=== PATIENT | male | born 1940 | race Caucasian/White ===

== ENCOUNTER 2022-06-18 17:00 | Outpatient (CLI) | payer SELFPAY | END 2022-06-18 17:01 | disposition critical access hospital (66) | LOC: EMS 17:00 | DX: R53.1 Weakness (principal); I49.9 Cardiac arrhythmia, unspecified | CPT/HCPCS: A0425; A0429 ==

== ENCOUNTER 2022-06-18 17:02 | Emergency (ER) | payer SELFPAY ==
[2022-06-18] MEDS ORDERED: SODIUM CHLORIDE 0.9% 1,000 ML IV STA (18:15)
--- NOTE | 2022-06-18 18:15 | ED Physician Documentation ---
History of Present Illness - Stated complaint Stated Complaint: GLF - Chief complaint Chief Complaint: Cardiac - History obtained from History obtained from: Patient, EMS - History of Present Illness Pain level max: 0 Pain level now: 0 - Additonal information Additional information: Patient is an 82-year-old male who presents to the emergency department stating that he lives at home by himself. He states that last night around 830 he felt weak on the left leg and left arm, described as mild. He states that he tried to get up to go to the bathroom but fell onto the ground. He then "slathered" his way to the bathroom and use the bathroom. He then went to bed. This morning he got up out of his recliner and felt like the left foot was mildly weak. He states that he fell again and this time he called his neighbor who called EMS. Patient has not had similar symptoms previously. He does not take any medications at home. Denies any injuries. No head, neck, back pain. States he currently feels normal. Review of Systems Constitutional: denies: Fever, Chills GI: denies: Vomiting, Diarrhea Skin: denies: Rash Musculoskeletal: denies: Neck pain, Back pain PD PAST MEDICAL HISTORY - Past Medical History Past Medical History: No - Past Surgical History Past Surgical History: No - Present Medications Home Medications: Ambulatory Orders Medication Instructions Recorded Confirmed No Known Home Medications 06/18/22 06/18/22 - Allergies Allergies/Adverse Reactions: Allergies Allergy/AdvReac Type Severity Reaction Status Date / Time No Known Drug Allergies Allergy Verified 06/18/22 17:22 - Living Situation Living Arrangement: reports: At home - Social History Does the pt smoke?: No Does the pt drink ETOH?: No Does the pt have substance abuse?: No - Family History Family history: reports: Non contributory PD ED PE NORMAL - Vitals Vital signs reviewed: Yes - General General: Alert and oriented X 3, No acute distress - HEENT HEENT: Atraumatic, PERRL, EOMI, Ears normal, Pharynx benign, Other (Dry lips and tongue) - Neck Neck: Supple, no meningeal sign, No bony TTP - Cardiac Cardiac: RRR, Strong equal pulses - Respiratory Respiratory: No respiratory distress, Clear bilaterally - Abdomen Abdomen: Soft, Non tender, Non distended - Back Back: No spinal TTP - Derm Derm: Warm and dry - Extremities Extremities: No edema, No calf tenderness / cord - Neuro Neuro: Alert and oriented X 3, real property evaluator 2-12 intact, No motor deficit, No sensory deficit, Normal speech Eye Opening: Spontaneous Motor: Obeys Commands Verbal: Oriented GCS Score: 15 - Psych Psych: Normal mood, Normal affect Results - Vitals Vitals: Vital Signs - 24 hr 06/18/22 06/18/22 06/18/22 17:14 17:26 17:56 Temperature 37.1 C Heart Rate 95 89 94 Respiratory 18 18 18 Rate Blood Pressure 156/95 H 142/80 H O2 Saturation 98 100 100 06/18/22 06/18/22 06/18/22 18:33 19:06 19:30 Temperature Heart Rate 84 85 81 Respiratory 18 18 20 Rate Blood Pressure 148/81 H 136/90 H 134/81 H O2 Saturation 99 99 100 06/18/22 06/18/22 06/18/22 20:00 20:30 21:00 Temperature Heart Rate 78 82 84 Respiratory 21 14 11 L Rate Blood Pressure 134/94 H 113/94 H O2 Saturation 100 100 99 06/18/22 06/18/22 06/18/22 21:30 22:00 22:30 Temperature Heart Rate 94 92 94 Respiratory 18 16 19 Rate Blood Pressure 146/87 H 118/77 117/90 H O2 Saturation 92 96 97 06/18/22 06/18/22 23:00 23:45 Temperature 36.9 C Heart Rate 87 88 Respiratory 17 17 Rate Blood Pressure 121/88 H 121/88 H O2 Saturation 99 97 Oxygen O2 Source Room air - EKG (time done) 1851 Rate: Rate (enter#) (86) Rhythm: NSR, Other (PVC) [place]: LAD Intervals: Wide QRS Ischemia: Normal ST segments, Non specific changes (ST elevation V1-2) - Labs Labs: Laboratory Tests 06/18/22 06/18/22 06/18/22 18:20 18:20 18:20 WBC 11.8 H RBC 4.89 Hgb 14.5 Hct 44.9 MCV 91.8 MCH 29.7 MCHC 32.3 RDW 12.9 Plt Count 317 MPV 11.1 Neut # (Auto) 9.7 H Lymph # (Auto) 1.2 L Dunn # (Auto) 0.8 Eos # (Auto) 0.0 Baso # (Auto) 0.0 Absolute Nucleated RBC 0.00 Nucleated RBC % 0.0 PT INR APTT Sodium 137 Potassium 3.5 Chloride 95 L Carbon Dioxide 25 Anion Gap 17.0 H BUN 30 H Creatinine 0.9 Estimated GFR (MDRD) 81 L Glucose 102 H Calcium 10.1 Phosphorus 2.8 Magnesium 2.0 Total Bilirubin 1.0 AST 41 ALT 14 Alkaline Phosphatase 56 Total Creatine Kinase 603 H Troponin I High Sens 81.2 H* Total Protein 8.1 Albumin 3.8 Globulin 4.3 H Albumin/Globulin Ratio 0.9 L Lipase 27 Urine Color Urine Clarity Urine pH Ur Specific [place] Urine Protein Urine Glucose (UA) Urine Ketones Urine Occult Blood Urine Nitrite Urine Bilirubin Urine Urobilinogen Ur Leukocyte Esterase Ur Microscopic Review Urine Culture Comments 06/18/22 06/18/22 06/18/22 18:40 18:42 22:42 WBC RBC Hgb Hct MCV MCH MCHC RDW Plt Count MPV Neut # (Auto) Lymph # (Auto) Dunn # (Auto) Eos # (Auto) Baso # (Auto) Absolute Nucleated RBC Nucleated RBC % PT 11.9 INR 1.1 APTT 26.6 Sodium Potassium Chloride Carbon Dioxide Anion Gap BUN Creatinine Estimated GFR (MDRD) Glucose Calcium Phosphorus Magnesium Total Bilirubin AST ALT Alkaline Phosphatase Total Creatine Kinase Troponin I High Sens 90.2 H* Total Protein Albumin Globulin Albumin/Globulin Ratio Lipase Urine Color YELLOW Urine Clarity CLEAR Urine pH 6.0 Ur Specific [place] 1.020 Urine Protein TRACE Urine Glucose (UA) NEGATIVE Urine Ketones 40 H Urine Occult Blood NEGATIVE Urine Nitrite NEGATIVE Urine Bilirubin NEGATIVE Urine Urobilinogen 1 (NORMAL) Ur Leukocyte Esterase NEGATIVE Ur Microscopic Review NOT INDICATED Urine Culture Comments NOT INDICATED - Rads (name of study) CT angiogram head Radiology: Final report received, See rad report CT angiogram neck Radiology: Final report received, See rad report Chest x-ray Radiology: Final report received, See rad report PD Medical Decision Making - ED course Complexity details: reviewed results, re-evaluated patient, considered diff erential, d/w patient ED course: Patient appears significantly dehydrated. He feels much better after IV fluids. The CT angiogram of head and neck do not show any acute abnormalities. 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 He will follow-up with his doctor for this. He is eating and drinking without difficulty. Ambulating without any difficulty. No focal neurological deficits. NIH stroke scale of 0. Unclear etiology of his symptoms earlier today. We will have him follow-up with his doctor for further care. Patient counseled regarding signs and symptoms for which I believe and urgent re-evaluation would be necessary. Patient with good understanding of and agreement to plan and is comfortable going home at this time This document was made in part using voice recognition software. While efforts are made to proofread this document, sound alike and grammatical errors may occur. Patient does have a mild elevation of his high-sensitivity troponin. This did not change on repeat testing, suspect that this is a chronically elevated level. Patient does not have any chest pain, shortness of breath or symptoms of acute coronary syndrome currently. Departure - Departure Disposition: 01 Home, Self Care Clinical Impression: Ground-level fall, Dehydration Condition: Good Instructions: ED Dehydration Follow-Up: your,doctor in 1 week [Other] Comments: Please make sure you are drinking plenty of fluids at home. Please follow-up with your doctor for further care. Return if you worsen. It is recommended th at you follow-up with your doctor for further testing including cardiac screening, cholesterol screening. You do have an aortic aneurysm as well, but this does not meet criteria for surgery at this time and should be followed closely by your doctor. Please return if you worsen. HEAD CT ANGIOGRAPHY: Anterior circulation: Intracranial internal carotid arteries are normal in size and appear patent bilaterally. There is mild atherosclerotic calcification along the cavernous segments of the internal carotid arteries. The paired anterior cerebral arteries appear patent bilaterally. The anterior communicating artery also appears patent. The middle cerebral arteries appear patent bilaterally. No high-grade stenosis, occlusion, or filling defects. No cerebral aneurysms identified. Posterior circulation: Visualized portions of the vertebral arteries demonstrate normal caliber, and join to form a patent basilar artery. The posterior cerebral arteries appears patent bilaterally. No high-grade stenosis, occlusion, or filling defects. No cerebral aneurysms identified. IMPRESSION: 1. No acute intracranial abnormality. 2. No high-grade stenosis or occlusion of the central intracranial arteries. 3. Mild chronic white matter small vessel ischemic changes and cerebral volume loss. 4. Focal small hypodensi NECK CT ANGIOGRAPHY: Carotid system: There is aneurysmal dilatation of the visualized thoracic aorta, with the visualized arch measuring up to 4.5 cm. The great vessels demonstrate a conventional anatomy as they arise from the aortic arch. The origins of the common carotid arteries appear patent. The common carotid arteries are patent bilaterally. There is scattered atherosclerotic plaque with mild narrowing of less than 50% in the carotid bulbs. There is tortuosity of the left internal carotid artery. Internal carotid arteries appear patent along their course bilaterally. The carotid arteries as well as the proximal anterior and middle cerebral arteries are prominent in caliber. Posterior circulation: The origins of the vertebral arteries both appear patent. The more superior extracranial portions of both vertebral arteries also appear widely patent. They join to form a patent basilar artery. The vertebral arteries and the basilar artery are prominent in caliber. Soft tissues: Visualized thorax demonstrates scarring within the lung apices. Bones: No suspicious bony lesions. Visualized cervical spine demonstrates straightening of the cervical lordosis. There is multilevel degenerative disc disease and facet joint arthropathy. IMPRESSION: 1. No high-grade stenosis or occlusion of the head and neck arteries. 2. Mild narrowing of less than 50% in the carotid bulbs. 3. Aneurysmal dilatation of the visualized aorta. The estimate of stenosis included in the report of the imaging study was calculated using the NASCET method FINDINGS: Surgical changes and devices: None. Lungs and pleura: There is hyperinflation of the lungs with flattening of the hemidiaphragms compatible with COPD. No acute consolidation. No pleural effusions or pneumothorax. Mediastinum: There is aneurysmal dilatation of the aortic arch. Heart size is normal. Bones and chest wall: No suspicious bony lesions. Overlying soft tissues appear unremarkable. IMPRESSION: 1. No acute airspace disease. 2. Aneurysmal dilatation of the aortic arch. NIHSS - Time Time: 18:35 - Level of Consciousness Level of consciousness: (0) Alert, Keenly responsive LOC Questions: (0) Answers both Q's correct LOC Commands: (0) Performs both correctly - Gaze Best Gaze: (0) Normal - Visual Visual: (0) No loss - Facial Palsy Facial Palsy: (0) Normal, symmetrical movement - Motor Arms (both separate) Motor Arm (right): (0) No drift Motor Arm (left): (0) No drift - Motor Legs (both separate) Motor Leg (right): (0) No drift Motor Leg (left): (0) No drift - Limb Ataxia Limb Ataxia: (0) Absent - Sensory Sensory: (0) Normal - Best Language Best Language: (0) No aphasia - Dysarthria Dysarthria: (0) Normal - Extinction and Inattention (formally neg Extinction and inattention: (0) No abnormality - Total Score/Results Total Score/Result: 0
[2022-06-18 18:36] LABS: BASOPHILS % (AUTO) 0.3 %; EOSINOPHILS % (AUTO) 0.2 %; HCT - HEMATOCRIT 44.9 % (42.0-52.0); HGB - HEMOGLOBIN 14.5 g/dL (14.0-18.0); LYMPHOCYTES # (AUTO) 1.2 10^3/uL (1.5-3.5); LYMPHOCYTES % (AUTO) 10.4 %; MEAN CORPUSCULAR HEMOGLOBIN 29.7 pg (27.0-31.0); MEAN CORPUSCULAR HGB CONC 32.3 g/dL (32.0-36.0); MEAN CORPUSCULAR VOLUME 91.8 fL (80.0-94.0); MEAN PLATELET VOLUME 11.1 fL (7.4-11.4); MONOCYTES # (AUTO) 0.8 10^3/uL (0.0-1.0); MONOCYTES % (AUTO) 6.7 %; NEUTROPHILS # (AUTO) 9.7 10^3/uL (1.5-6.6); NEUTROPHILS % (AUTO) 81.9 %; PLT - PLATELET COUNT 317 10^3/uL (130-450); RED BLOOD COUNT 4.89 10^6/uL (4.70-6.10); RED CELL DISTRIBUTION WIDTH 12.9 % (12.0-15.0); WHITE BLOOD COUNT 11.8 x10^3/uL (4.8-10.8)
[2022-06-18 18:51] LABS: ALBUMIN 3.8 g/dL (3.2-5.5); ALBUMIN/GLOBULIN RATIO 0.9 (1.0-2.2); CALCIUM 10.1 mg/dL (8.5-10.3); CREATININE 0.9 mg/dL (0.6-1.2); PHOSPHORUS 2.8 mg/dL (2.5-4.6); POTASSIUM 3.5 mmol/L (3.5-5.0); TOTAL PROTEIN 8.1 g/dL (6.7-8.2)
[2022-06-18 18:57] LABS: INR 1.1 (0.8-1.2); PT - PROTHROMBIN TIME 11.9 secs (9.9-12.6)
[2022-06-18 18:58] LABS: BILIRUBIN,URINE NEGATIVE (NEGATIVE); GLUCOSE, URINE (UA) NEGATIVE (NEGATIVE); KETONES,URINE (UA) 40 mg/dL (NEGATIVE); LEUKOCYTE ESTERASE, URINE NEGATIVE (NEGATIVE); NITRITE,URINE NEGATIVE (NEGATIVE); OCCULT BLOOD,URINE NEGATIVE (NEGATIVE); PROTEIN,URINE TRACE mg/dL (NEGATIVE); UROBILINOGEN,URINE 1 (NORMAL) E.U./dL (NORMAL)
[2022-06-18 18:59] LABS: CLARITY,URINE CLEAR (CLEAR)
[2022-06-18 19:04] LABS: PARTIAL THROMBOPLASTIN TIME 26.6 secs (24.9-33.3)
--- NOTE | 2022-06-18 20:31 | CT Report ---
PROCEDURE: ANGIO HEAD W/WO INDICATIONS: L sided weakness CONTRAST: 80mL Omni 300 TECHNIQUE: Precontrast 4.5 mm thick angled axial sections acquired from the foramen magnum to the vertex. Afte r the administration of intravenous contrast, 1 mm thick sections acquired through the [place] of [place] is. Postcontrast 4.5 mm thick sections then re-acquired from the foramen magnum to the vertex. 3-di mensional whqreiy-fqiyxwcjc-scflqrkigi (MIP) and/or volume rendering reformats were acquired of the c entral intracranial vasculature. For radiation dose reduction, the following was used: automated ex posure control, adjustment of mA and/or kV according to patient size. COMPARISON: Concurrent CTA of the neck FINDINGS: Image quality: There is mild motion artifact. BRAIN: CSF spaces: There is mild cerebral volume loss with prominence of the ventricles and sulci. Basal ci sterns are patent. No extra-axial fluid collections. Brain: No intracranial hemorrhage, mass, or mass effect. Mejia-white matter interface is preserved. T here are subcortical and periventricular white matter hypodensities consistent with mild chronic smal l vessel ischemic changes. A small focal hypodensity within the left thalamus is suggestive of a prio r lacunar infarct of indeterminate acuity. No abnormal intracranial enhancement. Skull and face: Calvarium and facial bones appear intact, without suspicious lesions. Orbits appear normal. Sinuses: Sinuses and mastoids are clear. HEAD CT ANGIOGRAPHY: Anterior circulation: Intracranial internal carotid arteries are normal in size and appear patent bi laterally. There is mild atherosclerotic calcification along the cavernous segments of the internal carotid arteries. The paired anterior cerebral arteries appear patent bilaterally. The anterior com municating artery also appears patent. The middle cerebral arteries appear patent bilaterally. No hi gh-grade stenosis, occlusion, or filling defects. No cerebral aneurysms identified. Posterior circulation: Visualized portions of the vertebral arteries demonstrate normal caliber, and join to form a patent basilar artery. The posterior cerebral arteries appears patent bilaterally. No high-grade stenosis, occlusion, or filling defects. No cerebral aneurysms identified. IMPRESSION: 1. No acute intracranial abnormality. 2. No high-grade stenosis or occlusion of the central intracranial arteries. 3. Mild chronic white matter small vessel ischemic changes and cerebral volume loss. 4. Focal small hypodensity in the left thalamus suggestive of a prior lacunar infarct of indeterminat e acuity. Reviewed by: Greg Lane MD on 06/18/2022 8:29 PM PST Approved by: Greg Lane MD on 06/18/2022 8:29 PM PST Station ID: [id number]
--- NOTE | 2022-06-18 20:37 | CT Report ---
PROCEDURE: ANGIO NECK W INDICATIONS: L sided weakness CONTRAST: 80mL Omni 300 TECHNIQUE: After the administration of intravenous contrast, 1.5 mm axial sections acquired from the aortic arch to the [place] of [place]. Coronal 3-D maximum intensity projection (MIP) and/or volume rendering ref ormats were then performed. For radiation dose reduction, the following was used: automated exposur e control, adjustment of mA and/or kV according to patient size. COMPARISON: Concurrent CTA head. FINDINGS: Image quality: Excellent. NECK CT ANGIOGRAPHY: Carotid system: There is aneurysmal dilatation of the visualized thoracic aorta, with the visualized arch measuring up to 4.5 cm. The great vessels demonstrate a conventional anatomy as they arise from the aortic arch. The origins of the common carotid arteries appear patent. The common carotid jimena karla are patent bilaterally. There is scattered atherosclerotic plaque with mild narrowing of less th an 50% in the carotid bulbs. There is tortuosity of the left internal carotid artery. Internal caroti d arteries appear patent along their course bilaterally. The carotid arteries as well as the proximal anterior and middle cerebral arteries are prominent in caliber. Posterior circulation: The origins of the vertebral arteries both appear patent. The more superior extracranial portions of both vertebral arteries also appear widely patent. They join to form a madsen nt basilar artery. The vertebral arteries and the basilar artery are prominent in caliber. Soft tissues: Visualized thorax demonstrates scarring within the lung apices. Bones: No suspicious bony lesions. Visualized cervical spine demonstrates straightening of the cerv ical lordosis. There is multilevel degenerative disc disease and facet joint arthropathy. IMPRESSION: 1. No high-grade stenosis or occlusion of the head and neck arteries. 2. Mild narrowing of less than 50% in the carotid bulbs. 3. Aneurysmal dilatation of the visualized aorta. The estimate of stenosis included in the report of the imaging study was calculated using the NASCET method Reviewed by: Greg Lane MD on 06/18/2022 8:36 PM PST Approved by: Greg Lane MD on 06/18/2022 8:36 PM PST Station ID: [id number]
[2022-06-18] MEDS ORDERED: iohexoL-300 100 ML VIAL IVP ONE (21:14)
--- NOTE | 2022-06-18 21:24 | XRAY Report ---
PROCEDURE: Chest 1 View X-Ray INDICATIONS: abnormal EKG TECHNIQUE: One view of the chest was acquired. COMPARISON: None. FINDINGS: Surgical changes and devices: None. Lungs and pleura: There is hyperinflation of the lungs with flattening of the hemidiaphragms compati ble with COPD. No acute consolidation. No pleural effusions or pneumothorax. Mediastinum: There is aneurysmal dilatation of the aortic arch. Heart size is normal. Bones and chest wall: No suspicious bony lesions. Overlying soft tissues appear unremarkable. IMPRESSION: 1. No acute airspace disease. 2. Aneurysmal dilatation of the aortic arch. Reviewed by: Greg Donovan MD on 06/18/2022 9:22 PM [facility] Approved by: Greg Donovan MD on 06/18/2022 9:22 PM [facility] Station ID: [id number]
[2022-06-18 23:05] VITALS: BP 121/88
== END 2022-06-18 23:45 | disposition home or self-care (01) ==
LOC: ED 17:02
DX: E86.0 Dehydration (principal); W18.30XA Fall on same level, unspecified, initial encounter; Z91.81 History of falling
CPT/HCPCS: 36415; 70496; 70498; 71045; 80053; 81003; 82550; 83690; 83735; 84100; 84484; 85025; 85610; 85730; 93005; 99284; Q9967; 81001; 87086

== ENCOUNTER 2025-03-28 14:02 | Inpatient (IN) ==
--- NOTE | 2025-03-28 14:18 | ED Physician Documentation ---
History of Present Illness Stated complaint Stated Complaint: FALL/AMS Chief complaint Chief Complaint: Back Pain History obtained from History obtained from: Patient and EMS Additonal information Additional information: The patient is brought to the emergency department by EMS for chief complaint of found down on the floor. The patient does not remember falling or being on the floor at his house, but apparently, friends or family had not heard from him and stepped in to check on him and thought that he had probably been on the floor since at least 1700 yesterday. The patient denies any complaints other than being a little bit weak. He states that he takes natural remedies and does not use any medications and that his "organs are in great shape". He denies chest pain or shortness of breath. No fevers. No other complaints at this time. Meds/Allgy Home Medications Ambulatory Orders Medication Instructions Recorded Confirmed No Known Home Medications 06/18/2203/10 Allergies Allergies Allergy/AdvReac Type Severity Reaction Status Date / Time No Known Drug Allergies Allergy Verified 03/28/25 14:54 PFSH Active Problems All Active Problems (Updated 03/28/25 @ 17:[address] MD) Dehydration (Acute) Generalized weakness (Acute) Atrial flutter with rapid ventricular response (Acute) Social History Social History (Updated 03/29/25 @ 07:50 by Keya Elena MD) Smoking Status: Never smoker Living arrangement: At home Level: Assisted Home Mobility Equipment: Wheelchair Do you feel safe in your home environment?: Yes History of physical, verbal, emotional, or financial abuse?: No Exam Exam Vital Signs: Vital Signs x48h Temp Pulse Resp BP Pulse Ox 03/28/25 14:06 36.6 C 144 H 18 133/111 H 100 Constitutional normal general appearance and no apparent distress HENMT normocephalic, head/scalp atraumatic, external nose normal and oral mucous membranes normal Eyes EOMs intact bilaterally Neck/C-Spine visual inspection normal and supple Respiratory breath sounds equal bilaterally, normal respiratory effort and clear to auscultation bilaterally Cardiovascular regular rhythm noted and no edema Regular rhythm with tachycardic rate. Gastrointestinal abdomen normal to inspection, abdomen soft to palpation, nontender to palpation and nondistended Genitourinary no CVA tenderness Extremities normal to inspection Neurology Alert, grossly intact Psychiatry mental status grossly normal Skin skin color normal Results Vitals Vitals: Vital Signs - 24 hr 03/29/25 09:00 03/29/25 10:00 03/29/25 11:00 Pulse Rate Pulse Rate [Monitoring electrodes] 78 76 115 H Respiratory Rate 25 H 24 16 Blood Pressure Blood Pressure [Right Brachial artery] 104/74 104/79 121/86 O2 Saturation 97 96 98 O2 Source Room air Room air Room air Sedation scale 0-Fully awake 0-Fully awake 03/29/25 11:01 03/29/25 11:14 Pulse Rate 109 H 115 H Pulse Rate [Monitoring electrodes] Respiratory Rate Blood Pressure 121/86 121/86 Blood Pressure [Right Brachial artery] O2 Saturation O2 Source Sedation scale Oxygen O2 Source Room air Labs Labs: Laboratory Tests 03/28/25 03/28/25 03/28/25 14:05 14:19 14:35 WBC 9.7 RBC 4.30 L Hgb 12.8 L Hct 39.1 L MCV 90.9 MCH 29.8 MCHC 32.7 RDW 14.0 Plt Count 276 MPV 11.4 Neut # (Auto) 8.6 H Lymph # (Auto) 0.4 L Wheeler # (Auto) 0.6 Eos # (Auto) 0.0 Baso # (Auto) 0.0 Absolute Nucleated RBC 0.00 Nucleated RBC % 0.0 Sodium 141 Potassium 3.8 Chloride 103 Carbon Dioxide 25 Anion Gap 13.0 BUN 28 H Creatinine 0.8 Estimated GFR (MDRD) 92 Glucose 116 H POC Whole Bld Glucose 144 Calcium 8.9 Magnesium Total Bilirubin 0.9 AST 20 ALT 8 L Alkaline Phosphatase 49 Total Creatine Kinase 367 H Total Protein 6.7 Albumin 3.7 Globulin 3.0 Albumin/Globulin Ratio 1.2 Lipase 10 L Urine Color Urine Clarity Urine pH Ur Specific [place] Urine Protein Urine Glucose (UA) Urine Ketones Urine Occult Blood Urine Nitrite Urine Bilirubin Urine Urobilinogen Ur Leukocyte Esterase Urine RBC Urine WBC Ur Squamous Epith Cells Urine Bacteria Urine Mucus Ur Microscopic Review Urine Culture Comments Nasal Screen MRSA (PCR) 03/28/25 03/28/25 03/29/25 16:13 18:03 04:30 WBC 8.7 RBC 4.21 L Hgb 12.8 L Hct 38.5 L MCV 91.4 MCH 30.4 MCHC 33.2 RDW 14.3 Plt Count 262 MPV 11.1 Neut # (Auto) Lymph # (Auto) Wheeler # (Auto) Eos # (Auto) Baso # (Auto) Absolute Nucleated RBC Nucleated RBC % Sodium 140 Potassium 3.3 L Chloride 106 Carbon Dioxide 25 Anion Gap 9.0 BUN 25 H Creatinine 0.8 Estimated GFR (MDRD) 92 Glucose 110 H POC Whole Bld Glucose Calcium 8.5 Magnesium 1.9 Total Bilirubin AST ALT Alkaline Phosphatase Total Creatine Kinase Total Protein Albumin Globulin Albumin/Globulin Ratio Lipase Urine Color YELLOW Urine Clarity CLEAR Urine pH 6.0 Ur Specific [place] 1.030 Urine Protein NEGATIVE Urine Glucose (UA) NEGATIVE Urine Ketones NEGATIVE Urine Occult Blood TRACE Urine Nitrite NEGATIVE Urine Bilirubin SMALL H Urine Urobilinogen 0.2 (NORMAL) Ur Leukocyte Esterase NEGATIVE Urine RBC None Seen Urine WBC 0-3 Ur Squamous Epith Cells FEW Squamous Urine Bacteria Rare Urine Mucus Few Strands Ur Microscopic Review INDICATED Urine Culture Comments NOT INDICATED Nasal Screen MRSA (PCR) NEGATIVE PD Medical Decision Making ED course Complexity details: reviewed old records, reviewed results, considered differential and d/w patient ED course: The pt was significantly tachycardic on arrival, and EKG showed a regular rhythm in the 140's, read as "SVT." Pt was given adenosine 6 mg, and rate slowed briefly to the 90's, demonstrating atrial flutter on the monitor. The rate promptly went back up to the 140's, so pt was given Cardizem 25 mg IV and a PO dose, as well. His rate came down to the 90's for a while, but within an hour, it was creeping back up to the 130's. The pt was given another dose of IV Cardizem 25 mg, and started on a Cardizem drip. He was hydrated with IV fluids during this time. Labs showed a moderately elevated CK in the 300's, a normal WBC count, and elevated BUN at 28 with normal creatinine. The pt urinated after receiving a couple liters of NS, and this was negative. I discussed the case with the hospitalist team, and they agreed to admit the pt to the ICU on diltiazem drip. HR was improved in the low 100's on re-evaluation after drip initiation. Critical Care Critical Care Provided: Yes Time(min): 30 Comments: Critical care time was necessary, due to high probability of imminent and life- threatening decline, due to tachyarrhythmia in the setting of atrial flutter. Time Includes: Direct patient care, Review records, Reassess patient, Document care, Coordinate care and Medical consult Data interpretation: Labs, Pulse ox, CXR, Prior EKG, Cardiac output and See progress note Discharge Plan Discharge Patient Disposition: [facility] DC/Xfer Condition: Critical Clinical Impression: Atrial flutter with rapid ventricular response, Generalized weakness, Dehydration Interventions: ED Admission Assessment Last Done: 03/28/25 18:06 Vitals documented within 30 minutes of discharge?: Yes
[2025-03-28 14:24] LABS: HCT - HEMATOCRIT 39.1 % (42.0-52.0); HGB - HEMOGLOBIN 12.8 g/dL (14.0-18.0); MEAN PLATELET VOLUME 11.4 fL (7.4-11.4); NRBC ABSOLUTE COUNT (AUTO) 0.00 x10^3/uL; NUCLEATED RED BLOOD CELLS AUTO 0.0 /100WBC; PLT - PLATELET COUNT 276 10^3/uL (130-450); RED CELL DISTRIBUTION WIDTH 14.0 % (12.0-15.0)
[2025-03-28] MEDS: ADENOSINE 6 MG/2 ML VIAL IVP STA (14:24)
[2025-03-28] MEDS: SODIUM CHLORIDE 0.9% 1,000 ML IV STA ×2 (14:25→16:05)
[2025-03-28] MEDS: diltiaZEM INJ 5 MG/ML VIAL IVP STA ×2 (14:47→16:52)
[2025-03-28 14:55] LABS: ALT ALANINE AMINOTRANSFERASE 8.0 IU/L (10-60); AST ASPARTATE AMINOTRANSFERASE 20.0 IU/L (10-42); BUN - BLOOD UREA NITROGEN 28.0 mg/dL (6-20); CARBON DIOXIDE - CO2 25.0 mmol/L (21-32); CK- CREATINE KINASE 367.0 IU/L (30-223); CREATININE 0.8 mg/dL (0.6-1.3); GFR - MDRD 92.0 (>89)
--- OUTSIDE RECORDS SUMMARY | 2025-03-28 15:14 | EXTERNAL MEDICAL SUMMARY RPT | Continuity of Care Document ---
Author Organization [facility] Address [address] [place] [address] Phone Results/Labs test date facility value unit notes Result panel 1 GLUCOSE, WHOLE BLOOD 2025-03-28 14:05 [facility] 144 (missing) (missing) Result panel 2 NUCLEATED RED BLOOD CELLS AUTO 2025-03-28 14:19 [facility] 0.0 /100wbc (missing) BASOPHILS # (AUTO) 2025-03-28 14:19 [facility] 0.0 10 3/ul (missing) EOSINOPHILS # (AUTO) 2025-03-28 14:19 [facility] 0.0 10 3/ul (missing) NRBC ABSOLUTE COUNT (AUTO) 2025-03-28 14:19 [facility] 0 .00 x10 3/ul (missing) LYMPHOCYTES # (AUTO) 2025-03-28 14:19 [facility] 0.4 10 3/ul (missing) MONOCYTES # (AUTO) 2025-03-28 14:19 [facility] 0.6 10 3/ul (missing) MEAN PLATELET VOLUME 2025-03-28 14:19 [facility] 11.4 fl (missing) HGB - HEMOGLOBIN 2025-03-28 14:19 [facility] 12.8 g /dl (missing) RED CELL DISTRIBUTION WIDTH 2025-03-28 14:19 [facility] 14.0 % (missing) PLT - PLATELET COUNT 2025-03-28 14:19 [facility] 276 10 3/ul (missing) MEAN CORPUSCULAR HEMOGLOBIN 2025-03-28 14:19 [facility] 29.8 pg (missing) MEAN CORPUSCULAR HGB CONC 2025-03-28 14:19 [facility] 32 .7 g/dl (missing) HCT - HEMATOCRIT 2025-03-28 14:19 [facility] 39.1 % (missing) RED BLOOD COUNT 2025-03-28 14:19 [email or web address] 4.30 10 6/ul (missing) NEUTROPHILS # (AUTO) 2025-03-28 14:19 [email or web address] 8.6 10 3/ul (missing) WHITE BLOOD COUNT 2025-03-28 14:19 [email or web address] 9.7 x10 3/ul (missing) MEAN CORPUSCULAR VOLUME 2025-03-28 14:19 [email or web address] 90.9 fl (missing) Result panel 3 CREATININE 2025-03-28 14:35 [email or web address] 0.8 mg/dl As of November 2022 testing method has changed, this may include reference ranges. BILIRUBIN,TOTAL 2025-03-28 14:35 [email or web address] 0.9 mg/dl As of November 2022 testing method has changed, this may include reference ranges. ALBUMIN/GLOBULIN RATIO 2025-03-28 14:35 [email or web address] 1.2 (missing) (missing) LIPASE 2025-03-28 14:35 [email or web address] 10 u/l As of November 2022 testing method has changed, this may include reference ranges. CHLORIDE 2025-03-28 14:35 [email or web address] 103 mmol/l As of November 2022 testing method has changed, this may include reference ranges. GLUCOSE 2025-03-28 14:35 [email or web address] 116 mg/dl As of November 2022 testing method has changed, this may include reference ranges. ANION GAP 2025-03-28 14:35 [email or web address] 13.0 (missing) (missing) SODIUM 2025-03-28 14:35 [email or web address] 141 mmol/l REDRAW AST ASPARTATE AMINOTRANSFERASE 2025-03-28 14:35 [email or web address] 20 iu/l As of November 2022 testing method has changed, this may include reference ranges. CARBON DIOXIDE - CO2 2025-03-28 14:35 [email or web address] 25 mmol/l As of November 2022 testing method has changed, this may include reference ranges. BUN - BLOOD UREA NITROGEN 2025-03-28 14:35 [email or web address] 28 mg/dl As of November 2022 testing method has changed, this may include reference ranges. GLOBULIN 2025-03-28 14:35 [email or web address] 3.0 g/dl (missing) ALBUMIN 2025-03-28 14:35 [email or web address] 3.7 g/dl As of November 2022 testing method has changed, this may include reference ranges. POTASSIUM 2025-03-28 14:35 [email or web address] 3.8 mmol/l As of November 2022 testing method has changed, this may include reference ranges. CK- CREATINE KINASE 2025-03-28 14:35 [email or web address] 367 iu/l REDRAW As of November 2022 testing method has changed, this may include reference ranges. ALKALINE PHOSPHATASE 2025-03-28 14:35 [email or web address] 49 iu/l As of November 2022 testing method has changed, this may include reference ranges. TOTAL PROTEIN 2025-03-28 14:35 [email or web address] 6.7 g/dl As of November 2022 testing method has changed, this may include reference ranges. ALT ALANINE AMINOTRANSFERASE 2025-03-28 14:35 [email or web address] 8 iu/l As of November 2022 testing method has changed, this may include reference ranges. CALCIUM 2025-03-28 14:35 [email or web address] 8.9 mg/dl As of November 2022 testing method has changed, this may include reference ranges. GFR - MDRD 2025-03-28 14:35 [email or web address] 92 (missing) The IDMS-traceable MDRD Study Equation has been validated extensively in and populations between the ages of 18 and 70 with impaired kidney function (eGFR < 60 mL/min/1.73m2) and has shown good performance for patients with all common causes of kidney disease. Although this equation has not been validated for patients older than 70, an MDRD-derived eGFR may still be a useful tool for providers caring for patients older than 70. References: http://www.nkdep. nih.gov/lab-evalu ation/gfr/creatin ine-stand ardization, last updated July 2011. Social History date description facility
[2025-03-28 16:31] LABS: OCCULT BLOOD,URINE TRACE (NEGATIVE)
[2025-03-28 16:32] LABS: GLUCOSE, URINE (UA) NEGATIVE (NEGATIVE); KETONES,URINE (UA) NEGATIVE (NEGATIVE)
[2025-03-28 16:44] LABS: SQUAMOUS EPITHELIAL CELL,UR FEW Squamous (<= Few)
[2025-03-28] MEDS ORDERED: diltiaZEM INJ 5 MG/ML VIAL ONE (16:45)
--- NOTE | 2025-03-28 17:22 | CT Report ---
PROCEDURE: CT Head WO INDICATIONS: fall/amnestic to event TECHNIQUE: CT of the head was performed, without intravenous contrast. Reformats: Coronal and sagittal. For radiation dose reduction, the following was used: automated exposure control, adjustment of mA and/or kV according to patient size. COMPARISON: None. FINDINGS: Image quality: Diagnostic. The ventricular system and cortical sulci demonstrate atrophy, consistent for patient's stated age. There are areas of hypodensity in the periventricular and subcortical white matter. There is no acute intra or extra-axial fluid collection. No acute hemorrhage, mass lesion or midline shift. Brainstem is unremarkable. Globes are symmetrical. Sinuses are aerated. Osseous structures are intact. IMPRESSION: 1. No acute intracranial process. 2. Moderate atrophy and chronic microvascular ischemic changes. Reviewed by: Ekta Babb MD on 03/28/2025 5:19 PM [facility] Approved by: Ekta Babb MD on 03/28/2025 5:19 PM [facility] Station ID: [id number]
--- NOTE | 2025-03-28 17:23 | HISTORY & PHYSICAL EXAMINATION ---
Chief Complaint Chief Complaint Chief Complaint: Found down History of Present Illness Admitted From Admitted From:: Home History Obtained From Records Reviewed: EMR History obtained from: Patient Exam Limitations: Poor historian History of Present Illness HPI Comment/Other: Patient is a 85-year-old male who states that he has no past medical history. He presents via EMS after being found down on the floor. He is a pretty poor historian in this regard, and does not remember falling or being on the floor at his house. His friends or family had not heard from him, so they called a welfare check. When asked which friend or family member I can call for further information, he is unable to provide a name, Per ER documentation, EMS found him down and brought him in. In the emergency room, he was found to be in atrial flutter with rapid ventricular responsehis heart rate was as high as 144. He was normotensive the entire time. He was afebrile, and saturating 93% on room air. Lab work was reviewedhe had a normal white count. BMP was largely unremarkable. CPK was mildly elevated at 367. UA was negative for any acute infection. Head CT was completed which shows no acute intracranial process. For his atrial flutterinitially, adenosine was given. This was followed by Cardizem. This helped slow down his rate. He was trialed with just oral medications, but eventually needed a Cardizem drip. He was then admitted to the ICU. At this time, patient denies any chest pain, fevers, chills, palpitations, weaknesses. He states that he has no past medical history. He takes no medications. The last time he saw a doctor was a naturopathic doctor about 6 years ago. He has no known drug allergies. He has had no surgeries. He denies any alcohol, tobacco, recreational drug use. He lives alone. When asked who he would want to call in case of an emergency, he is unable to list someone. His contact list someone named Jen Fuentes. Patient resuscitation status was briefly discussed, and patient is a DO NOT RESUSCITATE. Meds/Allgy Home Medications Ambulatory Orders Medication Instructions Recorded Confirmed No Known Home Medications 06/18/2203/10 Allergies Allergies Allergy/AdvReac Type Severity Reaction Status Date / Time No Known Drug Allergies Allergy Verified 03/28/25 14:54 [facility] Active Problems All Active Problems (Updated 03/28/25 @ 17:[address] MD) Dehydration (Acute) Generalized weakness (Acute) Atrial flutter with rapid ventricular response (Acute) Social History Social History Smoking Status: Never smoker Living arrangement: At home Level: Assisted Do you feel safe in your home environment?: Yes History of physical, verbal, emotional, or financial abuse?: No POLST Patient has POLST: No Review of Systems Constitutional Reports: Weakness; Denies: Fatigue, Fever, Chills, Malaise or Poor appetite Eyes Denies: Pain, Irritation, Blurry vision, Vision loss or Diplopia Ears, nose, mouth, and throat Reports: Hearing loss; Denies: Ear pain, Tinnitus, Nose bleeds, Nasal discharge, Mouth lesions or Bleeding gums Cardiovascular Reports: Irregular heart rate; Denies: chest pain, palpitations, edema, Syncope or shortness of breath with exertion Respiratory Denies: Shortness of breath, Cough or Sputum production Gastrointestinal Denies: Abdominal pain, Abdominal distention, Nausea, Vomiting, Heartburn, Diarrhea or Constipation Genitourinary Denies: Painful urination, Urinary frequency or Urinary urgency Musculoskeletal Denies: Back pain, Extremity pain, Extremity swelling or Joint pain Integumentary/Breast Denies: Rash, Itching, Dryness, Redness or Skin pain Neurological Reports: General weakness; Denies: Headache, Weakness in extremities, Numbness in extremities, Abnormal gait or Dizziness Psychiatric Denies: Depression, Anxiety, Mood swings or Panic attacks Endocrine Denies: Excessive urination, Excessive thirst or Fatigue Hematologic/Lymphatic Denies: Anemia, Easy bruising or Easy bleeding Prior Level of Functionality: Lives alone. Independent of ADLs. Exam Exam Vital Signs: Vital Signs x48h Temp Pulse Pulse Resp BP BP Pulse Ox 03/29/25 07:00 72 23 119/65 93 03/29/25 06:04 72 129/58 L 03/29/25 06:00 75 16 129/58 L 97 03/29/25 05:00 98 23 104/65 95 03/29/25 04:00 98.8 F 104 H 18 110/73 98 03/29/25 03:00 106 H 24 114/71 96 03/29/25 02:00 96 21 99/71 95 03/29/25 01:00 96 21 109/68 97 03/29/25 00:00 97 20 98/69 95 Constitutional normal general appearance, no apparent distress, abnormal body habitus (thin), no limitations and alert HENMT normocephalic, head/scalp atraumatic and hearing grossly normal bilaterally Eyes PERRL, EOMs intact bilaterally and conjunctivae normal Neck/C-Spine visual inspection normal, trachea midline and cervical spine nontender Chest inspection of chest normal Respiratory breath sounds equal bilaterally, normal respiratory effort, clear to auscultation bilaterally, no wheezes, no rales and no retractions Cardiovascular normal heart rate noted, rhythm abnormal (irregular), no gallop, no rub and no murmur Gastrointestinal abdomen normal to inspection, abdomen soft to palpation, nontender to palpation and normoactive bowel sounds Genitourinary no CVA tenderness and bladder normal to palpation Back/Pelvis spine normal to inspection, no thoracic spine tenderness and no lumbar spine tenderness Extremities normal to inspection, normal to palpation, no tenderness and full ROM Neurology no movement abnormality noted and no focal motor deficit noted Psychiatry mental status grossly normal, oriented x3, thought process normal, cooperative and affect normal Skin skin color normal, no rash, no lesions and no wounds Conclusion/Plan Problem List (1) Atrial flutter with rapid ventricular response: Plan: Patient presented after a wellness check by EMS after friend/family had not heard from him in over 12 hours. He was found down. Denies any chest pain, palpitations, but does endorse some generalized weakness. Found to be in atrial flutter with rapid ventricular response, which is new for the patient. Received adenosine, diltiazem pushes, and was started on a diltiazem drip. Will continue tonight, and likely switch to orals tomorrow for rate control. [id number] score of 2, will discuss intiation of Eliquis, but patient has had worsening falls over the last few years. Echo has been ordered. Optimize electrolytes, potassium greater than 4, magnesium greater than 2. (2) Generalized weakness: Plan: Patient presented after ground-level fall. He does not recall the events leading up to this. CT head without any acute abnormalities noted. Continue gentle IV fluid rehydration. (3) Dehydration: Plan: Continue gentle IV fluid rehydration. Lab Results Lab results reviewed: Yes 03/29/25 04:30 03/29/25 04:30 Diagnostic Imaging Results Diagnostic Imaging Results: positive Final report reviewed EKG Results EKG Interpreted Independently: Yes Core Measures Anticipated LOS I expect patient to be DC'd or transferred within 96 hours.: Yes Issues Hospital Issues and Management Plan: None anticipated. DVT/VTE - Prophylaxis VTE/DVT Device ordered at admit?: No VTE/DVT Prophylaxis med ordered at admit?: Yes AMI - Statin at Admit Aspirin Prescribed on Admit: No Not Ordered - Medical Reason: Not indicated
[2025-03-28] MEDS ORDERED: ONDANSETRON ODT 4 MG TABLET TL PRN (17:55)
[2025-03-28] MEDS ORDERED: ONDANSETRON 4 MG/2 ML VIAL IVP PRN (17:55)
[2025-03-28] MEDS: LACTATED RINGERS 1,000 ML IV SCH (18:22)
[2025-03-28] MEDS: HEPARIN 5,000 UNIT/ML VIAL SUBQ SCH (20:30)
[2025-03-29] MEDS: SODIUM CHLORIDE FLUSH 0.9% 10 ML SYRINGE IVP SCH (01:35)
[2025-03-29 04:35] LABS: HCT - HEMATOCRIT 38.5 % (42.0-52.0); HGB - HEMOGLOBIN 12.8 g/dL (14.0-18.0); MEAN PLATELET VOLUME 11.1 fL (7.4-11.4); PLT - PLATELET COUNT 262.0 10^3/uL (130-450); RED CELL DISTRIBUTION WIDTH 14.3 % (12.0-15.0)
[2025-03-29 04:56] LABS: BUN - BLOOD UREA NITROGEN 25.0 mg/dL (6-20); CARBON DIOXIDE - CO2 25.0 mmol/L (21-32); CREATININE 0.8 mg/dL (0.6-1.3); GFR - MDRD 92.0 (>89)
--- NOTE | 2025-03-29 07:50 | PROVIDER PROGRESS NOTE ---
Subjective Subjective Subjective: This morning, patient states that he feels perfectly fine. He denies any fevers or chills or palpitations. Nurse expresses concern about his chewing. He may be pocketing food. Current Medications Current Medications Current Medications: Current Medications Generic Name Dose Route Start Last Admin Trade Name Freq PRN Reason Stop Dose Admin Diltiazem HCl 30 mg 03/29/25 00:00 03/29/25 06:04 Diltiazem 30 Mg Tablet PO 30 mg Q6HR VALERIE Administration Heparin Sodium (Porcine) 5,000 unit 03/28/25 21:00 03/28/25 20:30 Heparin 5,000 Unit/Ml Vial SUBQ 5,000 unit BID VALERIE Administration Lactated Ringer's 1,000 mls @ 100 mls/hr 03/28/25 18:00 03/29/25 04:10 Lr IV 100 mls/hr .Q10H VALERIE Administration Diltiazem HCl 125 mg/ Dextrose 125 mls @ 5 mls/hr 03/28/25 18:47 03/29/25 06:09 IV 10 mg/hr TITR PRN 10 mls/hr HR>120 Titration Protocol 5 MG/HR Ondansetron HCl 4 mg 03/28/25 17:55 Ondansetron Odt 4 Mg Tablet TL Q6HR PRN Nausea / Vomiting Ondansetron HCl 4 mg 03/28/25 17:55 Ondansetron 4 Mg/2 Ml Vial IVP Q6HR PRN Nausea / Vomiting Sodium Chloride 10 ml 03/28/25 17:55 Sodium Chloride Flush 0.9% 10 Ml Syringe IVP PRN PRN NEEDED PER PROVIDER ORDERS Sodium Chloride 10 ml 03/29/25 01:00 03/29/25 01:35 Sodium Chloride Flush 0.9% 10 Ml Syringe IVP Not Given 0100,0900,1700 [facility] Objective Vital Signs/Intake & Output Reviewed Vital Signs: Yes Vital Signs: Vital Signs x48h Temp Pulse Pulse Resp BP BP Pulse Ox 03/29/25 07:00 72 23 119/65 93 03/29/25 06:04 72 129/58 L 03/29/25 06:00 75 16 129/58 L 97 03/29/25 05:00 98 23 104/65 95 03/29/25 04:00 98.8 F 104 H 18 110/73 98 03/29/25 03:00 106 H 24 114/71 96 03/29/25 02:00 96 21 99/71 95 03/29/25 01:00 96 21 109/68 97 03/29/25 00:00 97 20 98/69 95 Intake & Output: Intake & Output 03/26/25 03/27/25 03/28/25 03/29/25 23:59 23:59 23:59 23:59 Intake Total 2034 153 / 153 Output Total 0 / 0 100 / 100 Balance 2034 1435 / 143 Weight (kg) 59.5 kg Objective General Appearance: positive No acute distress, Alert and Other (Cachectic in appearance); negative Anxious Eyes Bilateral: positive Normal inspection, PERRL and EOMI ENT: positive ENT inspection nml, Pharynx nml and No signs of dehydration Neck: positive Nml inspection, Thyroid nml and No JVD Respiratory: positive Chest non-tender, No respiratory distress and Breath sounds nml; negative Wheezes, Rales or Rhonchi Cardiovascular: positive No murmur, No gallop, Irregularly irregular, Tachycardia and Other (Atrial flutter noted); negative Systolic murmur Abdomen: positive Non-tender, No organomegaly and No distention; negative Guarding or Splenomegaly Back: positive Nml inspection; negative CVA tenderness (R) or CVA tenderness (L) Skin: positive Color nml, No rash, Warm and Dry Extremities: positive Non-tender, Full ROM, Nml appearance and No pedal edema Neurologic/Psychiatric: positive Oriented x3, Motor nml and Mood/affect nml Lab Results 03/29/25 04:30 03/29/25 04:30 Other Labs: Lab Results x24hrs 03/29/25 03/28/25 03/28/25 Range/Units 04:30 18:03 16:13 WBC 8.7 (4.8-10.8) x10^3/uL RBC 4.21 L (4.70-6.10) 10^6/uL Hgb 12.8 L (14.0-18.0) g/dL Hct 38.5 L (42.0-52.0) % MCV 91.4 (80.0-94.0) fL MCH 30.4 (27.0-31.0) pg MCHC 33.2 (32.0-36.0) g/dL RDW 14.3 (12.0-15.0) % Plt Count 262 (130-450) 10^3/uL MPV 11.1 (7.4-11.4) fL Neut # (Auto) (1.5-6.6) 10^3/uL Lymph # (Auto) (1.5-3.5) 10^3/uL [place] # (Auto) (0.0-1.0) 10^3/uL Eos # (Auto) (0.0-0.7) 10^3/uL Baso # (Auto) (0.0-0.1) 10^3/uL Absolute Nucleated RBC x10^3/uL Nucleated RBC % /100WBC Sodium 140 (135-145) mmol/L Potassium 3.3 L (3.5-4.5) mmol/L Chloride 106 (101-111) mmol/L Carbon Dioxide 25 (21-32) mmol/L Anion Gap 9.0 (6-13) BUN 25 H (6-20) mg/dL Creatinine 0.8 (0.6-1.3) mg/dL Estimated GFR (MDRD) 92 (>89) Glucose 110 H (74-104) mg/dL POC Whole Bld Glucose (70-100) mg/dL Calcium 8.5 (8.5-10.3) mg/dL Magnesium 1.9 (1.7-2.3) mg/dL Total Bilirubin (0.2-1.0) mg/dL AST (10-42) IU/L ALT (10-60) IU/L Alkaline Phosphatase (42-121) IU/L Total Creatine Kinase (30-223) IU/L Total Protein (6.4-8.9) g/dL Albumin (3.2-5.5) g/dL Globulin (2.1-4.2) g/dL Albumin/Globulin Ratio (1.0-2.2) Lipase (11-82) U/L Urine Color YELLOW Urine Clarity CLEAR (CLEAR) Urine pH 6.0 (5.0-7.5) PH Ur Specific [place] 1.030 (1.002-1.030) Urine Protein NEGATIVE (NEGATIVE) mg/dL Urine Glucose (UA) NEGATIVE (NEGATIVE) mg/dL Urine Ketones NEGATIVE (NEGATIVE) mg/dL Urine Occult Blood TRACE (NEGATIVE) Urine Nitrite NEGATIVE (NEGATIVE) Urine Bilirubin SMALL H (NEGATIVE) Urine Urobilinogen 0.2 (NORMAL) (NORMAL) E.U./dL Ur Leukocyte Esterase NEGATIVE (NEGATIVE) Urine RBC None Seen (0-5) /HPF Urine WBC 0-3 (0-3) /HPF Ur Squamous Epith Cells FEW Squamous (<= Few) Urine Bacteria Rare (None Seen) /HPF Urine Mucus Few Strands Ur Microscopic Review INDICATED Urine Culture Comments NOT INDICATED Nasal Screen MRSA (PCR) NEGATIVE (NEGATIVE) 03/28/25 03/28/25 03/28/25 Range/Units 14:35 14:19 14:05 WBC 9.7 (4.8-10.8) x10^3/uL RBC 4.30 L (4.70-6.10) 10^6/uL Hgb 12.8 L (14.0-18.0) g/dL Hct 39.1 L (42.0-52.0) % MCV 90.9 (80.0-94.0) fL MCH 29.8 (27.0-31.0) pg MCHC 32.7 (32.0-36.0) g/dL RDW 14.0 (12.0-15.0) % Plt Count 276 (130-450) 10^3/uL MPV 11.4 (7.4-11.4) fL Neut # (Auto) 8.6 H (1.5-6.6) 10^3/uL Lymph # (Auto) 0.4 L (1.5-3.5) 10^3/uL [place] # (Auto) 0.6 (0.0-1.0) 10^3/uL Eos # (Auto) 0.0 (0.0-0.7) 10^3/uL Baso # (Auto) 0.0 (0.0-0.1) 10^3/uL Absolute Nucleated RBC 0.00 x10^3/uL Nucleated RBC % 0.0 /100WBC Sodium 141 (135-145) mmol/L Potassium 3.8 (3.5-4.5) mmol/L Chloride 103 (101-111) mmol/L Carbon Dioxide 25 (21-32) mmol/L Anion Gap 13.0 (6-13) BUN 28 H (6-20) mg/dL Creatinine 0.8 (0.6-1.3) mg/dL Estimated GFR (MDRD) 92 (>89) Glucose 116 H (74-104) mg/dL POC Whole Bld Glucose 144 (70-100) mg/dL Calcium 8.9 (8.5-10.3) mg/dL Magnesium (1.7-2.3) mg/dL Total Bilirubin 0.9 (0.2-1.0) mg/dL AST 20 (10-42) IU/L ALT 8 L (10-60) IU/L Alkaline Phosphatase 49 (42-121) IU/L Total Creatine Kinase 367 H (30-223) IU/L Total Protein 6.7 (6.4-8.9) g/dL Albumin 3.7 (3.2-5.5) g/dL Globulin 3.0 (2.1-4.2) g/dL Albumin/Globulin Ratio 1.2 (1.0-2.2) Lipase 10 L (11-82) U/L Urine Color Urine Clarity (CLEAR) Urine pH (5.0-7.5) PH Ur Specific [place] (1.002-1.030) Urine Protein (NEGATIVE) mg/dL Urine Glucose (UA) (NEGATIVE) mg/dL Urine Ketones (NEGATIVE) mg/dL Urine Occult Blood (NEGATIVE) Urine Nitrite (NEGATIVE) Urine Bilirubin (NEGATIVE) Urine Urobilinogen (NORMAL) E.U./dL Ur Leukocyte Esterase (NEGATIVE) Urine RBC (0-5) /HPF Urine WBC (0-3) /HPF Ur Squamous Epith Cells (<= Few) Urine Bacteria (None Seen) /HPF Urine Mucus Ur Microscopic Review Urine Culture Comments Nasal Screen MRSA (PCR) (NEGATIVE) Assessment/Plan Problem List (1) Atrial flutter with rapid ventricular response: Impression: Patient presented after a wellness check by EMS after friend/family had not heard from him in over 12 hours. He was found down. Denies any chest pain, palpitations, but does endorse some generalized weakness. Found to be in atrial flutter with rapid ventricular response, which is new for the patient. Received adenosine, diltiazem pushes, and was started on a diltiazem drip. Continued overnight (now at 5mg/hr), and started oral Cardizem as well 30mg every 6 hours. [id number] score of 2, will discuss intiation of Eliquis, but patient has had worsening falls over the last few years. Echo has been ordered. Optimize electrolytes, potassium greater than 4, magnesium greater than 2. (2) Generalized weakness: Impression: Patient presented after ground-level fall. He does not recall the events leading up to this. CT head without any acute abnormalities noted. Continue gentle IV fluid rehydration. (3) Dehydration: Impression: Continue gentle IV fluid rehydration.
--- NOTE | 2025-03-29 08:46 | PHARMACY PROGRESS NOTE ---
Best Possible Medication History Admit Date and Time: 03/28/25 1719 Home Medications Medication Instructions Recorded Confirmed Type No Known Home Medications 06/18/2203/10 History Processed by: Nursing Medications reviewed in ED?: Yes Medication History completed: Yes [facility] Statement: As the person ultimately responsible for medication therapy, providers are able to order a medication from an existing home medication list in [facility] via the "Reconcile Routine" prior to Confirmation of that medication by network diagnostic support specialist. Such practice is discouraged except when the physician, in their clinical judgment, deems that a medical need exists for a medication without regard to previous use.
[2025-03-29] MEDS: POTASSIUM CHLORIDE 20 MEQ TABLET PO SCH (08:55)
--- NOTE | 2025-03-29 15:00 | ADVANCE CARE PLANNING NOTE ---
Advance Care Planning Planning Encounter Date: 03/29/25 Time: 01:00 Purpose: Establish goals of care, fill out POLST. Parties in Attendance: Caregiver, Jen. Nurse, Elyssa. Patient. Decisional Capacity of the Patient: Fully decisional. Diagnosis for Encounter (1) Atrial flutter with rapid ventricular response: Summary: Patient presented after a wellness check by EMS after friend/family had not heard from him in over 12 hours. He was found down. Denies any chest pain, palpitations, but does endorse some generalized weakness. Found to be in atrial flutter with rapid ventricular response, which is new for the patient. Received adenosine, diltiazem pushes, and was started on a diltiazem drip. Continued overnight (now at 5mg/hr), and started oral Cardizem as well 30mg every 6 hours. [id number] score of 2, will discuss intiation of Eliquis, but patient has had worsening falls over the last few years. Echo has been ordered. Optimize electrolytes, potassium greater than 4, magnesium greater than 2. Encounter Additional Discussion: Patient is a 85-year-old male with no past medical history who presented for new onset atrial flutter. Currently receiving Cardizem drip. He moved to the [place] many years ago, over 20 years ago. He had a partner who in 2010. He has been living on his own since. He is deeply spiritual. He does not often seek medical care. His last time visiting a healthcare provider was a naturopathic doctor about 6 years ago. He currently takes no medications. His only loved one is his caregiver, Jen who sees him 3-5 times a week. She is present at bedside during our goals of care conversation. He is very adamant that he wants to be DO NOT RESUSCITATE. He oscillates between being completely comfort care managed, and some medical management with oral medications and such. We reviewed the POLST together with him and Lucero contributing to the conversation, and they are in agreement that DO NOT RESUSCITATE and a comfort focused approach is what aligns best with his levels of care. He is okay with a Cardizem drip, and switching to oral Cardizem, however is hopeful that he may not need these when he goes home. We talked about the risks and benefits of Eliquis, or any other anticoagulation. It was explained to him that without anticoagulation, he may have a higher risk of blood clots and strokes. With Eliqujyoti, there is a chance of bleeding, especially with his chronic debility and frequent falls. At this time, he would like to not be placed on a blood thinner. POLST was filled outpatient is a DNR, comfort focused care. Code Status: Do Not Attempt Resuscitation Time spent on advance care plannin
--- NOTE | 2025-03-29 16:32 | PT Plan of Care ---
PT Plan of Care Physical Therapy Plan of Care: Diagnosis Diagnosis Aflutter Diagnosis dehydration Referring Provider Keya Elena Patient Status Inpatient Chief Complaint Chief Complaint pt denies significant complaints Balance/ Functional Results Sitting Balance Fair Standing Balance Unable Assessment Assessment Pt is a pleasant 85yo M referred for PT eval s/p found down. Admitted with Aflutter, HR up to 144bpm in ED. Cleared for eval by hospitalist. No notable PMH however pt presents with significant scoliosis and windswept legs. Upon PT eval, pt A&Ox3, agrees to work with PT. Transfers to EOB Darian and performs seated lateral scoot from EOB to b/s chair. Requests to complete transfer without help and is minimally receptive to cues for safe sequencing. D/t significant scoliosis, pt sits with chest touching tops of thighs, reaches to arm rest and pulls himself toward L to transfer into chair. Requires significantly increased time for task and CGA overall though would benefit from modAx2 for improved safety. HR up to 146bpm during transfer. RN aware and monitoring. Overall presentation of mobility limitations d/t scoliosis and deconditioning. May benefit from continued PT in acute setting to improve functional transfers. When medically clear, PT rec dc to SNF vs LTC as pt does not appear to be able to meet care needs in current home setting . Will update recs closer to time of dc. Goals Improve pivot transfer ability Modified Independent to: Other transfer goal: pt will use slide board or similar for improved safety with lateral transfer Improve Sitting Balance to: Fair PT Plan of Care Frequency 1-2x/day Duration Until discharge Discharge Recommendations Discharge Location Assisted Facility Other tbd Transport Needs at Discharge BLS vs van Other BLS d/t poor trunk control, severe scoilosis
--- NOTE | 2025-03-29 16:44 | Speech Therapy Plan of Care ---
DIAGNOSIS Date of Service Date of Service: 03/29/25 Diagnosis: FALL/AMS SPEECH ASSESSMENT Assessment: Mr. Najera is an 85 y/o gentleman who sustained a GLF, found after >12 hours once a wellness check was initiated for him. Please review chart for full PMH. RN reports concern for dysphagia, noted pocketing of food during meals and occasional coughing with thin liquids. Pt is pleasant and oriented to self, place, and situation, though not to date. He reports having assistance at home for shopping and meal preparation. He does not wear his upper dentures due to poor fit and acknowledges that extended periods without wearing them may contribute to jaw changes. Pt demonstrates mild oral dysphagia characterized by absent dentition, slowed oral prep, and reduced AP transit, with an otherwise functional swallow. No overt s/s of penetration/aspiration observed; silent aspiration cannot be ruled out at bedside but is not suspected. Recommend initiating IDDSI Level 6 (Soft & Bite-Sized) diet with IDDSI Level 0 (Thin liquids) to reduce risk. Education provided; pt verbalized understanding and agreement. Will consider cognitive evaluation if concerns arise. Will follow as needed to ensure safety and carryover. CAREGIVER/PATIENT GOALS Patient/Caregiver Goals: To go home. SPEECH SHORT TERM GOALS Dysphagia: ST short term goal: Patient will safely consume the least restrictive diet and liquid level, as determined by ongoing swallow assessment, without overt s/s aspiration or pulmonary compromise, in order to maintain adequate nutrition and hydration Goal status: New SPEECH PLAN OF CARE Treatment Frequency: as needed Treatment Duration: for LOS
[2025-03-29] MEDS: MULTIVITAMIN W/MINERALS TABLET PO SCH (17:06)
[2025-03-30 04:33] LABS: VBG PH 7.526 (7.31-7.41)
[2025-03-30 04:37] LABS: HCT - HEMATOCRIT 34.3 % (42.0-52.0); HGB - HEMOGLOBIN 11.4 g/dL (14.0-18.0); MEAN PLATELET VOLUME 11.4 fL (7.4-11.4); PLT - PLATELET COUNT 226.0 10^3/uL (130-450); RED CELL DISTRIBUTION WIDTH 14.4 % (12.0-15.0)
[2025-03-30 04:55] LABS: ALT ALANINE AMINOTRANSFERASE 8.0 IU/L (10-60); AST ASPARTATE AMINOTRANSFERASE 18.0 IU/L (10-42); BUN - BLOOD UREA NITROGEN 27.0 mg/dL (6-20); CARBON DIOXIDE - CO2 25.0 mmol/L (21-32); CREATININE 0.9 mg/dL (0.6-1.3); GFR - MDRD 80.0 (>89); PHOSPHORUS 2.2 mg/dL (2.5-5.0)
[2025-03-30] MEDS: NEUTRA-PHOS 250 MG TABLET PO SCH ×2 (06:01→18:38)
[2025-03-30] MEDS: METOPROLOL SUCCINATE 25 MG TABLET PO SCH (08:40)
[2025-03-30] MEDS ORDERED: diltiaZEM INJ 5 MG/ML VIAL ONE (08:55)
[2025-03-30] MEDS: diltiaZEM INJ 5 MG/ML VIAL IVP ONE (08:59)
--- NOTE | 2025-03-30 12:09 | PROVIDER PROGRESS NOTE ---
Subjective Subjective Subjective: This morning, patient states that he feels perfectly fine. He denies any fevers or chills or palpitations. He states he hates taking pills. He is agreeable to taking some pills but hopes to go home without them. Current Medications Current Medications Current Medications: Current Medications Generic Name Dose Route Start Last Admin Trade Name Freq PRN Reason Stop Dose Admin Diltiazem HCl 30 mg 03/29/25 00:00 03/30/25 05:59 Diltiazem 30 Mg Tablet PO 30 mg Q6HR VALERIE Administration Heparin Sodium (Porcine) 5,000 unit 03/28/25 21:00 03/30/25 08:40 Heparin 5,000 Unit/Ml Vial SUBQ 5,000 unit BID VALERIE Administration Lactated Ringer's 1,000 mls @ 100 mls/hr 03/28/25 18:00 03/30/25 09:28 Lr IV 100 mls/hr .Q10H VALERIE Administration Diltiazem HCl 125 mg/ Dextrose 125 mls @ 5 mls/hr 03/28/25 18:47 03/30/25 10:00 IV 5 mg/hr TITR PRN 5 mls/hr HR>120 Titration Protocol 5 MG/HR Metoprolol Succinate 25 mg 03/30/25 09:00 03/30/25 08:40 Metoprolol Succinate 25 Mg Tablet PO 25 mg DAILY VALERIE Administration Multivitamins/Minerals 1 tab 03/29/25 17:00 03/30/25 08:39 Multivitamin W/Minerals Tablet PO 1 tab DAILYWM VALERIE Administration Ondansetron HCl 4 mg 03/28/25 17:55 Ondansetron Odt 4 Mg Tablet TL Q6HR PRN Nausea / Vomiting Ondansetron HCl 4 mg 03/28/25 17:55 Ondansetron 4 Mg/2 Ml Vial IVP Q6HR PRN Nausea / Vomiting Polyethylene Glycol 17 gm 03/29/25 09:00 03/30/25 08:40 Polyethylene Glycol 3350 17 Gm Packet PO 17 gm DAILY VALERIE Administration Sodium Chloride 10 ml 03/28/25 17:55 Sodium Chloride Flush 0.9% 10 Ml Syringe IVP PRN PRN NEEDED PER PROVIDER ORDERS Sodium Chloride 10 ml 03/29/25 01:00 03/30/25 08:40 Sodium Chloride Flush 0.9% 10 Ml Syringe IVP 10 ml 0100,0900,1700 VALERIE Administration Objective Vital Signs/Intake & Output Reviewed Vital Signs: Yes Vital Signs: Vital Signs x48h Temp Pulse Pulse Resp BP BP Pulse Ox 03/30/25 11:00 73 19 104/75 97 03/30/25 10:24 88 106/80 03/30/25 10:00 74 13 100/74 95 03/30/25 09:09 125 H 15 106/80 95 03/30/25 09:00 146 H 15 126/86 94 03/30/25 08:59 147 H 126/88 03/30/25 08:50 144 H 13 126/88 96 03/30/25 08:00 98.1 F 118 H 15 97/63 95 03/30/25 07:00 112 H 10 L 118/92 H 96 03/30/25 06:00 124 H 16 115/82 94 03/30/25 05:59 131 H 115/82 03/30/25 05:00 137 H 15 113/79 93 Intake & Output: Intake & Output 03/27/25 03/28/25 03/29/25 03/30/25 23:59 23:59 23:59 23:59 Intake Total 2034 3879 / 3879 1076 / 1076 Output Total 0 / 0 430 / 430 350 / 350 Balance 2034 3449 / 3449 726 / 726 Weight (kg) 59.5 kg Objective General Appearance: positive No acute distress, Alert and Other (Cachectic in appearance); negative Anxious Eyes Bilateral: positive Normal inspection, PERRL and EOMI ENT: positive ENT inspection nml, Pharynx nml and No signs of dehydration Neck: positive Nml inspection, Thyroid nml and No JVD Respiratory: positive Chest non-tender, No respiratory distress and Breath sounds nml; negative Wheezes, Rales or Rhonchi Cardiovascular: positive No murmur, No gallop, Irregularly irregular, Tachycardia and Other (Atrial flutter noted); negative Systolic murmur Abdomen: positive Non-tender, No organomegaly and No distention; negative Guarding or Splenomegaly Back: positive Nml inspection; negative CVA tenderness (R) or CVA tenderness (L) Skin: positive Color nml, No rash, Warm and Dry Extremities: positive Non-tender, Full ROM, Nml appearance and No pedal edema Neurologic/Psychiatric: positive Oriented x3, Motor nml and Mood/affect nml Lab Results 03/30/25 04:21 03/30/25 04:21 Other Labs: Lab Results x24hrs 03/30/25 Range/Units 04:21 WBC 6.9 (4.8-10.8) x10^3/uL RBC 3.80 L (4.70-6.10) 10^6/uL Hgb 11.4 L (14.0-18.0) g/dL Hct 34.3 L (42.0-52.0) % MCV 90.3 (80.0-94.0) fL MCH 30.0 (27.0-31.0) pg MCHC 33.2 (32.0-36.0) g/dL RDW 14.4 (12.0-15.0) % Plt Count 226 (130-450) 10^3/uL MPV 11.4 (7.4-11.4) fL VBG pH 7.526 H (7.31-7.41) Ionized Calcium 1.13 (1.09-1.30) mmol/L Sodium 137 (135-145) mmol/L Potassium 3.3 L (3.5-4.5) mmol/L Chloride 106 (101-111) mmol/L Carbon Dioxide 25 (21-32) mmol/L Anion Gap 6.0 (6-13) BUN 27 H (6-20) mg/dL Creatinine 0.9 (0.6-1.3) mg/dL Estimated GFR (MDRD) 80 L (>89) Glucose 110 H (74-104) mg/dL Calcium 8.2 L (8.5-10.3) mg/dL Phosphorus 2.2 L (2.5-5.0) mg/dL Magnesium 1.9 (1.7-2.3) mg/dL Total Bilirubin 0.7 (0.2-1.0) mg/dL AST 18 (10-42) IU/L ALT 8 L (10-60) IU/L Alkaline Phosphatase 35 L (42-121) IU/L Total Protein 4.9 L (6.4-8.9) g/dL Albumin 2.8 L (3.2-5.5) g/dL Globulin 2.1 (2.1-4.2) g/dL Albumin/Globulin Ratio 1.3 (1.0-2.2) Assessment/Plan Problem List (1) Atrial flutter with rapid ventricular response: Impression: Patient presented after a wellness check by EMS after friend/family had not heard from him in over 12 hours. He was found down. Denies any chest pain, palpitations, but does endorse some generalized weakness. Found to be in atrial flutter with rapid ventricular response, which is new for the patient. Received adenosine, diltiazem pushes, and was started on a diltiazem drip. Continued overnight (now at 5mg/hr), and started oral Cardizem as well 30mg every 6 hours. Have also started a beta loan as well (metoprolol succinate 25 mg daily), as blood pressure is allowing it. [id number]- VASc score of 2, patient adamantly does not want to be on anticoagulation. ECHO has been ordered. Discussed how atrial flutter is typically difficult to rate control and cardioversion/ablation would be a more definitive treatment. He does not want transfer. He would not want an invasive procedure. Optimize electrolytes, potassium greater than 4, magnesium greater than 2. (2) Generalized weakness: Impression: Patient presented after ground-level fall. He does not recall the events leading up to this. CT head without any acute abnormalities noted. Continue gentle IV fluid rehydration. PT evaluation completed, reccomend SNF. (3) Dehydration: Impression: Continue gentle IV fluid rehydration.
[2025-03-30 16:39] LABS: PHOSPHORUS 2.5 mg/dL (2.5-5.0)
[2025-03-30 16:46] LABS: VBG PH 7.485 (7.31-7.41)
[2025-03-30] MEDS: MAGNESIUM SULFATE 2 GRAM 2 GM/50 ML BAG IV ONE (18:38)
[2025-03-30] MEDS ORDERED: POTASSIUM CHLORIDE 20 MEQ TABLET PO SCH (19:00)
[2025-03-30] MEDS: POTASSIUM CHLOR 10 MEQ/100 ML 10 MEQ/100 ML BAG IV SCH (20:15)
--- NOTE | 2025-03-30 20:51 | ECHO Report ---
Version: 1 Study ID: [id number] [id number] Adult Echocardiogram Report Name: CLIF TIERNEY Study Date: 03/30/2025, 1: 00 PM BP: 93 / 67 mmHg Patient Location: ICU^2301^01 HR: 116 bpm : 1940 (MM/DD/YYYY) Gender: Male Height: 72 in Age: 85 Years Weight: 131 lb BSA: 1.78 m² Reason For Study: a flutter History: No previous study. Interpretation Summary The left ventricle is mildly dilated. Global left ventricular systolic function is mildly decreased. The calculated ejection fraction, as determined by the biplane method of disks, is 43%. There is mild global hypokinesis of the left ventricle. The right ventricle is normal in size and function. There is mild to moderate mitral regurgitation. The diameter of the ascending aorta is 4.5 cm. The ascending aorta is moderately dilated. The aorta at the level of the sinuses of Valsalva is mildly dilated. The aorta at the sinus of Valsalva measures 4.0cm. Left Ventricle: The left ventricle is mildly dilated. Sigmoid sepal base. No thrombus seen in the left ventricle. The calculated ejection fraction, as determined by the biplane method of disks, is 43%. Global left ventricular systolic function is mildly decreased. There is mild global hypokinesis of the left ventricle. Right Ventricle: The right ventricle is normal in size and function. TAPSE is consistent with normal right ventricular function. The tricuspid annular plane systolic excursion (TAPSE) measurement is 1.7 cm. Aortic Valve: The aortic valve is mildly calcified. The aortic valve is trileaflet. No hemodynamically significant valvular aortic stenosis. Mild aortic regurgitation is present. Mitral Valve: The mitral valve leaflets are mildly thickened. Moderate mitral annular calcification is present. No evidence of mitral stenosis is seen. There is mild to moderate mitral regurgitation. Tricuspid Valve: The tricuspid valve is normal in structure and function. There is no tricuspid stenosis. Mild to moderate tricuspid regurgitation present. Pulmonic Valve: The pulmonic valve is normal in structure and function. There is no pulmonic valvular stenosis. Trace pulmonic valvular regurgitation is present. Left Atrium: The left atrium is moderately to severely dilated. Right Atrium: The right atrium is moderately dilated. The inferior vena cava is significantly dilated with diminished collapse with sniff (estimated right atrial pressure 15-20mmHg). Atrial Septum: The interatrial septum appears normal, without evidence of shunt by 2D imaging and color Doppler. Aorta: The ascending aorta is moderately dilated (4.5 to 5.0cm). The diameter of the ascending aorta is 4.5 cm. Aortic Arch not imaged. The aorta at the level of the sinuses of Valsalva is mildly dilated. The aorta at the sinus of Valsalva measures 4.0cm. Pulmonary Artery: The pulmonary artery is not well visualized, but is probably normal size. The pulmonary artery systolic pressure is mildly increased. Inferior vena cava dynamics indicate severely elevated right atrial pressures. Pericardium/Pleural Space: A small pericardial effusion is present. A left pleural effusion is present. Left Ventricle IVSd: 0.99 cm LVIDd: 5.8 cm LVPWd: 0.95 cm LVIDs: 5.2 cm EDV(MOD-sp4): 83.5 ml LVLd ap4: 7.5 cm ESV(MOD-sp4): 41.8 ml ESV(sp4-el): 89.2 ml LVLs ap4: 7.0 cm EDV(MOD-sp2): 73.4 ml ESV(MOD-sp2): 34.9 ml Right Ventricle TAPSE: 1.73 cm RV S Law: 12.6 cm/sec Atria LA dimension: 5.0 cm LAV(MOD-sp4): 98.5 ml LAV(MOD-sp2): 96.2 ml Aortic Valve LVOT diam: 2.17 cm LV V1 mean P.95 mmHg LV V1 mean: 65.8 cm/sec LV V1 VTI: 16.2 cm Ao V2 VTI: 19.6 cm Ao mean P.2 mmHg Ao V2 mean: 83.7 cm/sec LV V1 max: 92.4 cm/sec LV V1 max P.4 mmHg Ao max P.3 mmHg Ao V2 max: 115.2 cm/sec Mitral Valve MV max P.9 mmHg MV V2 max: 121.1 cm/sec MV mean P.8 mmHg MV V2 mean: 77.3 cm/sec MV V2 VTI: 15.6 cm Tricuspid Valve TR max P.1 mmHg TR max law: 245.6 cm/sec TV max P.1 mmHg Aorta Ao root diam: 4.0 cm MMode/2D Measurements & Calculations Ao root diam: 4.0 cm BMI: 17.8 kilograms/m² BSA([facility]): 1.72 m² EDV(MOD-sp2): 73.4 ml EDV(MOD-sp4): 83.5 ml ESV(MOD-sp2): 34.9 ml ESV(MOD-sp4): 41.8 ml ESV(sp4-el): 89.2 ml IVSd: 0.99 cm LA A4C-A/L: 21.8 cm² LA dimension: 5.0 cm LA ESV-A/L: 76.9 ml LA Vol Index: 33.6 ml/m² LAV(MOD-sp2): 96.2 ml LAV(MOD-sp4): 98.5 ml LVIDd: 5.8 cm LVIDs: 5.2 cm LVLd ap4: 7.5 cm LVLs ap4: 7.0 cm LVOT diam: 2.17 cm LVPWd: 0.95 cm RA A4Cs: 22.0 cm² TAPSE: 1.73 cm Doppler Measurements & Calculations Ao max P.3 mmHg Ao mean P.2 mmHg Ao V2 max: 115.2 cm/sec Ao V2 mean: 83.7 cm/sec Ao V2 VTI: 19.6 cm LV V1 max: 92.4 cm/sec LV V1 max P.4 mmHg LV V1 mean: 65.8 cm/sec LV V1 mean P.95 mmHg LV V1 VTI: 16.2 cm MV max P.9 mmHg MV mean P.8 mmHg MV V2 max: 121.1 cm/sec MV V2 mean: 77.3 cm/sec MV V2 VTI: 15.6 cm PA max P.09 mmHg PA V2 max: 72.2 cm/sec RV S Law: 12.6 cm/sec TR max P.1 mmHg TR max law: 245.6 cm/sec TV max P.1 mmHg Other Measurements & Calculations Ao root area: 12.7 cm² KACEY(I,D): 3.1 cm² KACEY(V,D): 3.0 cm² EDV(Teich): 165.2 ml EF(MOD-sp2): 52.4 % EF(MOD-sp4): 50.0 % EF(sp-el): 57.9 % EF(Teich): 20.6 % ESV(Teich): 131.2 ml FS: 9.5 % LVOT area: 3.7 cm² MVA(VTI): 3.8 cm² SV(LVOT): 59.8 ml SV(MOD-sp4): 41.8 ml MD Ivana Gruber 03/30/2025, 8: 50 PM Ordering Physician: Keya Elena Referring Physician: Lola Street Performed By: ROMELIA
[2025-03-31 06:32] LABS: HCT - HEMATOCRIT 36.6 % (42.0-52.0); HGB - HEMOGLOBIN 12.2 g/dL (14.0-18.0); MEAN PLATELET VOLUME 11.1 fL (7.4-11.4); PLT - PLATELET COUNT 261.0 10^3/uL (130-450); RED CELL DISTRIBUTION WIDTH 14.5 % (12.0-15.0)
[2025-03-31 06:35] LABS: VBG PH 7.558 (7.31-7.41)
[2025-03-31 06:48] LABS: BUN - BLOOD UREA NITROGEN 20.0 mg/dL (6-20); CARBON DIOXIDE - CO2 25.0 mmol/L (21-32); CREATININE 0.8 mg/dL (0.6-1.3); GFR - MDRD 92.0 (>89); PHOSPHORUS 2.6 mg/dL (2.5-5.0)
[2025-03-31] MEDS: CALCIUM GLUC 1,000MG/50ML-NACL 1,000 MG/50 ML BAG IV ONE (08:07)
[2025-03-31] MEDS: METOPROLOL SUCCINATE 25 MG TABLET PO ONE (11:38)
--- NOTE | 2025-03-31 14:10 | PROVIDER PROGRESS NOTE ---
Subjective Prog Note Date Prog Note Date: 03/31/25 Prog Note Time: 14:09 Subjective Pt reports feeling: Improved Subjective: Elderly, cachectic gentleman with a hoarse voice, asking for the phone because he wants to talk to his caregiver. He tells me he is here because he fell at home. And he knows it is "something is wrong with my heart". He complains of severe generalized weakness. He hurts in his joints where he fell. A diffuse achiness. But he denies cp , sob, abd pain. He also tells me that the back of his head hurts. The right back of his neck hurts. The reason he was the caregiver is so that the caregiver can call the chiropractor and the chiropractor can come manipulate his spine while he still in the hospital Current Medications Current Medications Current Medications: Current Medications Generic Name Dose Route Start Last Admin Trade Name Freq PRN Reason Stop Dose Admin Heparin Sodium (Porcine) 5,000 unit 03/28/25 21:00 03/31/25 08:08 Heparin 5,000 Unit/Ml Vial SUBQ 5,000 unit BID VALERIE Administration Lactated Ringer's 1,000 mls @ 100 mls/hr 03/28/25 18:00 03/31/25 04:34 Lr IV 100 mls/hr .Q10H VALERIE Administration Metoprolol Succinate 25 mg 03/30/25 09:00 03/31/25 08:07 Metoprolol Succinate 25 Mg Tablet PO 25 mg DAILY VALERIE Administration Metoprolol Succinate 50 mg 03/31/25 21:00 Metoprolol Succinate 50 Mg Tablet PO BID VALERIE Metoprolol Tartrate 5 mg 03/31/25 10:39 Metoprolol 5 Mg/5 Ml Vial IVP Q6HR PRN HR OVER 110 Multivitamins/Minerals 1 tab 03/29/25 17:00 03/31/25 08:07 Multivitamin W/Minerals Tablet PO 1 tab DAILYWM VALERIE Administration Ondansetron HCl 4 mg 03/28/25 17:55 Ondansetron Odt 4 Mg Tablet TL Q6HR PRN Nausea / Vomiting Ondansetron HCl 4 mg 03/28/25 17:55 Ondansetron 4 Mg/2 Ml Vial IVP Q6HR PRN Nausea / Vomiting Polyethylene Glycol 17 gm 03/29/25 09:00 03/31/25 08:07 Polyethylene Glycol 3350 17 Gm Packet PO 17 gm DAILY VALERIE Administration Sodium Chloride 10 ml 03/28/25 17:55 Sodium Chloride Flush 0.9% 10 Ml Syringe IVP PRN PRN NEEDED PER PROVIDER ORDERS Sodium Chloride 10 ml 03/29/25 01:00 03/31/25 08:08 Sodium Chloride Flush 0.9% 10 Ml Syringe IVP 10 ml 0100,0900,1700 VALERIE Administration Objective Vital Signs/Intake & Output Reviewed Vital Signs: Yes Vital Signs: Vital Signs Temp Pulse Resp BP Pulse Ox 03/31/25 13:00 85 25 H 139/87 H 95 03/31/25 12:00 36.9 C 89 23 120/83 94 03/31/25 11:00 69 24 124/86 96 Intake & Output: Intake & Output 03/28/25 03/29/25 03/30/25 03/31/25 23:59 23:59 23:59 23:59 Intake Total 2034 3879 / 3879 2418 / 2418 1283 / 1283 Output Total 0 / 0 430 / 430 1050 / 1050 350 / 350 Balance 2034 3449 / 3449 1368 / 1368 933 / 933 Weight (kg) 59.5 kg Objective General Appearance: positive No acute distress, Alert and Other (Cachectic elderly gentleman looks older than his stated age, chronic bilateral temporal wasting hoarse voice, constant clearing of throat) Eyes Bilateral: positive PERRL and EOMI ENT: positive No signs of dehydration and Other (Missing some teeth) Neck: positive No JVD and Other (Even though he complains of neck pain, he can flex and extend); negative Stiff neck Respiratory: positive Chest non-tender, No respiratory distress and Rhonchi (More back of throat sound. Once he clears his throat and coughs they go away. Only to come back.); negative Wheezes or Rales Cardiovascular: positive Irregularly irregular and Systolic murmur; negative Tachycardia (First thing in the morning he was on a Cardizem drip with a pulse in the 90s. Occasionally went to 100 and to 110. By 10:30 AM off the Cardizem drip.) Abdomen: positive Non-tender, No organomegaly and Nml bowel sounds Skin: positive Warm and Embolic lesions (Present on admission is pink coccyx with no breakdown. 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 He gets tired with meal. He is a complete assist for going from supine to sitting, sitting to stand to bedside commode. Complete assist for toileting, rolling over in bed.) Lab Results 03/31/25 06:26 03/31/25 06:26 Other Labs: Lab Results x24hrs 03/31/25 03/30/25 Range/Units 06:26 16:16 WBC 7.9 (4.8-10.8) x10^3/uL RBC 4.07 L (4.70-6.10) 10^6/uL Hgb 12.2 L (14.0-18.0) g/dL Hct 36.6 L (42.0-52.0) % MCV 89.9 (80.0-94.0) fL MCH 30.0 (27.0-31.0) pg MCHC 33.3 (32.0-36.0) g/dL RDW 14.5 (12.0-15.0) % Plt Count 261 (130-450) 10^3/uL MPV 11.1 (7.4-11.4) fL VBG pH 7.558 H 7.485 H (7.31-7.41) Ionized Calcium 1.12 1.16 (1.09-1.30) mmol/L Sodium 136 (135-145) mmol/L Potassium 3.9 3.2 L (3.5-4.5) mmol/L Chloride 105 (101-111) mmol/L Carbon Dioxide 25 (21-32) mmol/L Anion Gap 6.0 (6-13) BUN 20 (6-20) mg/dL Creatinine 0.8 (0.6-1.3) mg/dL Estimated GFR (MDRD) 92 (>89) Glucose 125 H (74-104) mg/dL Calcium 8.3 L (8.5-10.3) mg/dL Phosphorus 2.6 2.5 (2.5-5.0) mg/dL Magnesium 2.2 1.8 (1.7-2.3) mg/dL Assessment/Plan Problem List (1) Atrial flutter with rapid ventricular response: Impression: He does not see physicians and has no documented past medical history. Patient presented after a wellness check by EMS after friend (Caregiver that lives across the street) had not heard from him in over 12 hours. He was found down. Denies any chest pain, palpitations, but does endorse some generalized weakness.Today is hospital day #4 Found to be in atrial flutter with rapid ventricular response, which is new for the patient. Received adenosine, diltiazem pushes, and was started on a diltiazem drip. Continued overnight (now at 5mg/hr), and started oral Cardizem as well 30mg every 6 hours. He was also started on a beta loan as well (metoprolol succinate 25 mg daily), as blood pressure is allowing it. [id number]- VASc score of 2, patient adamantly does not want to be on anticoagulation. ECHO has been ordered. Discussed how atrial flutter is typically difficult to rate control and cardioversion/ablation would be a more definitive treatment. He does not want transfer. He would not want an invasive procedure. We are optimizing electrolytes, potassium greater than 4, magnesium greater than 2. He has now been off the Cardizem drip since this morning. Not medically stable at this point in time. Still has bursts of tachycardia to the low 120s. So I am going to increase his metoprolol to 50 twice daily. I prefer to use metoprolol over Cardizem since his ejection fraction is 43% (Right ventricle has normal size and function, no significant valvular heart disease, but his left atrium is moderately to severely dilated. Right atrium moderately dilated.)I also anticipate that it would be difficult to get him into sinus rhythm because of the size of his left atrium. My goal is rate control and anticoagulation but he is declining the anticoagulation. (2) Generalized weakness: Impression: Patient presented after ground-level fall. He does not recall the events leading up to this. CT head without any acute abnormalities noted. Continue gentle IV fluid rehydration.And we are encouraging p.o. intake he is eating anywhere from 0% to 50% of his food. PT evaluation completed, reccomend SNF. Unfortunately this gentleman only has Medicare A to get him into a [facility] facility. Then he would have to pay for the physical therapy. Social work is working with him to do appropriate disposition. (3) Dehydration: Impression: Continue gentle IV fluid rehydration.
[2025-03-31] MEDS: METOPROLOL 5 MG/5 ML VIAL IVP PRN (17:51)
[2025-03-31] MEDS: diltiaZEM INJ 5 MG/ML VIAL IVP ONE ×2 (18:15→23:31)
[2025-03-31] MEDS: DIGOXIN 500 MCG/2 ML AMP IVP SCH (18:54)
[2025-03-31] MEDS: METOPROLOL SUCCINATE 50 MG TABLET PO SCH (20:19)
[2025-03-31] MEDS: METOPROLOL 5 MG/5 ML VIAL IVP STA (21:24)
[2025-03-31 23:59] LABS: ALT ALANINE AMINOTRANSFERASE 8.0 IU/L (10-60); AST ASPARTATE AMINOTRANSFERASE 18.0 IU/L (10-42); BUN - BLOOD UREA NITROGEN 16.0 mg/dL (6-20); CARBON DIOXIDE - CO2 25.0 mmol/L (21-32); CREATININE 0.8 mg/dL (0.6-1.3); GFR - MDRD 92.0 (>89)
--- NOTE | 2025-04-01 01:04 | PROVIDER PROGRESS NOTE ---
Flight Line Mechanic Note Flight Line Mechanic Note Flight Line Mechanic Note: per rn "Pt is 85M DNR admitted for afib/flutter. x1 stat 10mg diltiazem and PRN metoprolol 5mg IVP have had no effect on patient HR, it is still 132. BP 135/93. Have not had a chance to give scheduled digoxin yet. Patient has also been increasingly confused through the day and has now become very agitated attempting to remove monitoring equipment and IV, nonstop trying to leave the bed. Paranoid saying "maybe that would be better for us both" and "I don't trust you" after I said he might fall and crack his head. Need some help with both HR and agitation." cardizem drip started electrolyte protocol
--- NOTE | 2025-04-01 02:38 | PROVIDER PROGRESS NOTE ---
Developer Advocate Note Developer Advocate Note Developer Advocate Note: per rn "Patient admitted for afib. Receiving diltiazem drip, currently infusing at 10 ml/hr. Patient has received mulitiple doses of digoxin, diltiazem, and metoprolol. HR continues to be in 130s. Patient remains restless. Continues to call out "please help me." Requesting for medication to help with restlessness. Thank you." ativan x 1 dose
[2025-04-01] MEDS: HALOPERIDOL 5 MG/ML VIAL IM ONE ×2 (03:55→05:50)
--- NOTE | 2025-04-01 08:29 | PROVIDER PROGRESS NOTE ---
Subjective Prog Note Date Prog Note Date: 04/01/25 Prog Note Time: 08:28 Subjective Pt reports feeling: Improved Subjective: Interval History: He had a rough night last night. Yesterday I had stopped his Cardizem drip, increased his metoprolol from 25 daily to 50 twice daily, and added digoxin with his first dose last night. In spite of all these things he went back into rapid ventricular response. He is back on a Cardizem drip. Received frequent doses of IV Lopressor. He is short of breath. He was dropping his saturations. He also received Ativan x 1 for agitation. This morning I rapidly assessed him, and I ordered a chest x-ray and a BNP. Telemetry shows him to be flutter with a 3-1 block. I instructed the nurse to go ahead and give him his digoxin IV this morning. 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 No focal airspace disease or significant pleural effusion. Within an hour his blood pressure is 130s over 80s, heart rate is 68, he is comfortable and rolled over on his right side asleep. Oxygenating well with 2 L and a 97% sat. Patient symptoms: He denies chest pain. He does is lamenting that he got no sleep last night and is exhausted. Current Medications Current Medications Current Medications: Current Medications Generic Name Dose Route Start Last Admin Trade Name Freq PRN Reason Stop Dose Admin Heparin Sodium (Porcine) 5,000 unit 03/28/25 21:00 04/01/25 08:51 Heparin 5,000 Unit/Ml Vial SUBQ 5,000 unit BID VALERIE Administration Lactated Ringer's 1,000 mls @ 83 mls/hr 03/28/25 18:00 04/01/25 12:38 Lr IV 83 mls/hr .Q12H3M VALERIE Administration Diltiazem HCl 125 mg/ Dextrose 125 mls @ 5 mls/hr 04/01/25 01:00 04/01/25 08:52 IV 0 mg/hr .Q25H VALERIE 0 mls/hr Protocol Titration 5 MG/HR Metoprolol Succinate 50 mg 03/31/25 21:00 04/01/25 08:51 Metoprolol Succinate 50 Mg Tablet PO 50 mg BID VALERIE Administration Metoprolol Tartrate 5 mg 03/31/25 10:39 04/01/25 00:00 Metoprolol 5 Mg/5 Ml Vial IVP 5 mg Q6HR PRN Administration HR OVER 110 Multivitamins/Minerals 1 tab 03/29/25 17:00 04/01/25 08:51 Multivitamin W/Minerals Tablet PO 1 tab DAILYWM VALERIE Administration Ondansetron HCl 4 mg 03/28/25 17:55 Ondansetron Odt 4 Mg Tablet TL Q6HR PRN Nausea / Vomiting Ondansetron HCl 4 mg 03/28/25 17:55 Ondansetron 4 Mg/2 Ml Vial IVP Q6HR PRN Nausea / Vomiting Polyethylene Glycol 17 gm 03/29/25 09:00 04/01/25 08:51 Polyethylene Glycol 3350 17 Gm Packet PO 17 gm DAILY VALERIE Administration Sodium Chloride 10 ml 03/28/25 17:55 Sodium Chloride Flush 0.9% 10 Ml Syringe IVP PRN PRN NEEDED PER PROVIDER ORDERS Sodium Chloride 10 ml 03/29/25 01:00 04/01/25 08:52 Sodium Chloride Flush 0.9% 10 Ml Syringe IVP 10 ml 0100,0900,1700 VALERIE Administration Objective Vital Signs/Intake & Output Reviewed Vital Signs: Yes Vital Signs: Vital Signs Temp Pulse Pulse Resp BP Pulse Ox O2 Flow Rate 04/01/25 16:00 37.3 C 73 23 131/99 H 99 2 04/01/25 15:00 72 20 123/81 94 2 04/01/25 14:00 73 23 151/99 H 97 2 04/01/25 13:19 74 Intake & Output: Intake & Output 03/29/25 03/30/25 03/31/25 04/01/25 23:59 23:59 23:59 23:59 Intake Total 3879 / 3879 2418 / 2418 2403 / 2403 2230 / 2230 Output Total 430 / 430 1050 / 1050 1250 / 1250 4950 / 4950 Balance 3449 / 3449 1368 / 1368 1153 / 1153 -2720 / -2720 Objective General Appearance: positive No acute distress (Gaunt elderly gentleman, bilateral temporal wasting), Alert and Other (This gentleman makes reference to the [place] such as a serphim out of the book of [place]. Refers to Elohim as angels. That they are beings present in his life. But he states he is not hallucinating) Eyes Bilateral: positive PERRL and EOMI ENT: positive No signs of dehydration Neck: positive No JVD; negative Stiff neck Respiratory: positive Chest non-tender and No respiratory distress; negative Breath sounds nml (Diminished at bases. Slow unlabored respiration. Rib cage visible through his soft tissue) Cardiovascular: positive Regular rate & rhythm (Atrial flutter with a 4-1 block. Pulse in the 60s.) and Systolic murmur Abdomen: positive Non-tender, No organomegaly, Nml bowel sounds and No distention Skin: positive Warm, Dry and Pallor Extremities: positive Full ROM and No pedal edema Neurologic/Psychiatric: positive Motor nml (But he has generalized weakness. He is a total assist to get him to sit up, and do toileting, bathing. Is able to somewhat feed himself.) and Disoriented to time (Oriented to person, place. Easily confused. Seems much more distracted and less centered today than he was yesterday.); negative CN's nml (2-12) (He is deaf. No facial droop. No slurred speech.) Lab Results 03/31/25 06:26 04/01/25 11:53 Other Labs: Lab Results x24hrs 04/01/25 04/01/25 03/31/25 Range/Units 11:53 07:58 23:39 VBG pH 7.504 H (7.31-7.41) Ionized Calcium 1.19 (1.09-1.30) mmol/L Sodium 135 135 (135-145) mmol/L Potassium 3.6 3.6 4.0 (3.5-4.5) mmol/L Chloride 99 L 102 (101-111) mmol/L Carbon Dioxide 28 25 (21-32) mmol/L Anion Gap 8.0 8.0 (6-13) BUN 13 16 (6-20) mg/dL Creatinine 0.7 0.8 (0.6-1.3) mg/dL Estimated GFR (MDRD) 107 92 (>89) Glucose 114 H 120 H (74-104) mg/dL Calcium 8.8 8.9 (8.5-10.3) mg/dL Phosphorus 2.8 (2.5-5.0) mg/dL Magnesium 1.9 1.9 2.0 (1.7-2.3) mg/dL Total Bilirubin 0.9 (0.2-1.0) mg/dL AST 18 (10-42) IU/L ALT 8 L (10-60) IU/L Alkaline Phosphatase 46 (42-121) IU/L B-Natriuretic Peptide 2135 H (5-100) pg/mL Total Protein 5.9 L (6.4-8.9) g/dL Albumin 3.3 (3.2-5.5) g/dL Globulin 2.6 (2.1-4.2) g/dL Albumin/Globulin Ratio 1.3 (1.0-2.2) Assessment/Plan Problem List (1) Atrial flutter with rapid ventricular response: Impression: He does not see physicians and has no documented past medical history. Patient presented after a wellness check by EMS after friend (Caregiver that lives across the street) had not heard from him in over 12 hours. He was found down. Denies any chest pain, palpitations, but does endorse some generalized weakness. Found to be in atrial flutter with rapid ventricular response, which is new for the patient. Received adenosine, diltiazem pushes, and was started on a diltiazem drip. Continued overnight (now at 5mg/hr), and started oral Cardizem as well 30mg every 6 hours. He was also started on a beta loan as well (metoprolol succinate 25 mg daily), as blood pressure is allowing it. [id number]- VASc score of 2, patient adamantly does not want to be on anticoagulation. ECHO With mild global hypokinesis of the left ventricle with an ejection fraction of 43%. Right ventricle normal size and function. Mild to moderate mitral regurg. Dilated ascending aorta. Dilated sinuses of Valsalva. Left atrium moderately to severely dilated. Right atrium moderately dilated. Transfer to higher level of care offered to him after explanation of his pathophysiology. He did not want to transfer and wanted to stay here. He did not want any invasive procedures. We are optimizing electrolytes, potassium greater than 4, magnesium greater than 2. I weaned him off Cardizem March 31 in the morning. But still not medically stable as I adjusted his meds. Metoprolol increased from 25 daily to 50 mg twice daily. I added digoxin. And I stopped the Cardizem because of his ejection fraction. Overnight he went back into RVR and I think mild congestive heart failure. I also think that is going to be very difficult to get him into sinus rhythm because of the dilated left atrium. However he is in flutter and it appears that his rhythm system is trying to convert to sinus. Today is hospital day #5 He is back on the Cardizem drip. Currently looks great. Pulse is in the 60s. We are going to wean off the Cardizem again. He will receive 2 doses of IV dig between yesterday and today. I am going to check a chest x-ray to assess for congestive heart failure and order a BNP. Lasix 20 mg IV push given by me. (2) Generalized weakness: Impression: Patient presented after ground-level fall. He does not recall the events leading up to this. CT head without any acute abnormalities noted. Continue gentle IV fluid rehydration.And we are encouraging p.o. intake he is eating anywhere from 0% to 50% of his food. PT evaluation completed, recomend SNF. Unfortunately this gentleman only has Medicare A to get him into a assisted facility. Then he would have to pay for the physical therapy. Social work is working with him to do appropriate disposition. If his pulse rate can stand it, nursing is going try and get him out of bed. He is a fall risk. He is a max to assist and he tends to fall backwards when he stands. PT is going to work with him as well today. (3) Dehydration: Impression: Continue gentle IV fluid rehydration.He is currently to 100 cc an hour. I will reduce to 83 cc an hour.
--- NOTE | 2025-04-01 08:32 | XRAY Report ---
PROCEDURE: XR Chest 1V INDICATIONS: new chf and new hypoxia TECHNIQUE: One view of the chest was acquired. COMPARISON: 06/18/2022 FINDINGS: Surgical changes and devices: None. Lungs and pleura: Mild diffuse interstitial prominence. Suggestion of mild vascular congestion. No dense consolidation. No pneumothorax or pleural effusion. Mediastinum: Redemonstration of aneurysmal dilatation of the aortic arch. Increased prominence of the cardiac shadow suggestive of borderline cardiomegaly. Bones and chest wall: No suspicious bony lesions. Overlying soft tissues appear unremarkable. 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 No focal airspace disease or substantial pleural effusion. Reviewed by: Lefty Sibley MD on 04/01/2025 8:28 AM PST Approved by: Lefty Sibley MD on 04/01/2025 8:28 AM PST Station ID: [id number]
[2025-04-01 08:34] LABS: BUN - BLOOD UREA NITROGEN 13.0 mg/dL (6-20); CARBON DIOXIDE - CO2 28.0 mmol/L (21-32); CREATININE 0.7 mg/dL (0.6-1.3); GFR - MDRD 107.0 (>89)
[2025-04-01] MEDS: POTASSIUM CHLORIDE 20 MEQ TABLET PO ONE (09:43)
[2025-04-01] MEDS: FUROSEMIDE 20 MG/2 ML VIAL IVP ONE (10:45)
[2025-04-01 12:21] LABS: VBG PH 7.504 (7.31-7.41)
[2025-04-01 12:26] LABS: PHOSPHORUS 2.8 mg/dL (2.5-5.0)
[2025-04-01] MEDS: POTASSIUM CHLOR 10 MEQ/100 ML 10 MEQ/100 ML BAG IV SCH (12:39)
--- NOTE | 2025-04-02 00:12 | PROVIDER PROGRESS NOTE ---
Drum Stock Clerk Note Drum Stock Clerk Note Drum Stock Clerk Note: per nurse "Pt is 85M DNR admitted for afib/flutter RvR. Patients current sustained HR is 120. Patient has been off cardizem drip for 12 hours and was made med surg status at about 19:00. However at 21:00 his HR climbed to 115 and I gave scheduled 50mg PO metoprolol succinate and then PRN IVP 5mg metoprolol. Current VS HR 120, BP 153/106, RR 28, O2 93% on 2LNC. Patient has also been uncooperative and confused since yesterday, I'm unsure if he would be willing to take any additional PO. Do you want any additional IVP medication given at this time?" check cmp and mag lopressor 5 mg iv x 1
[2025-04-02] MEDS: METOPROLOL 5 MG/5 ML VIAL IVP ONE (00:31)
[2025-04-02 00:46] LABS: ALT ALANINE AMINOTRANSFERASE 11.0 IU/L (10-60); AST ASPARTATE AMINOTRANSFERASE 21.0 IU/L (10-42); BUN - BLOOD UREA NITROGEN 12.0 mg/dL (6-20); CARBON DIOXIDE - CO2 34.0 mmol/L (21-32); CREATININE 0.9 mg/dL (0.6-1.3); GFR - MDRD 80.0 (>89)
[2025-04-02 05:05] LABS: BUN - BLOOD UREA NITROGEN 12.0 mg/dL (6-20); CARBON DIOXIDE - CO2 31.0 mmol/L (21-32); CREATININE 0.9 mg/dL (0.6-1.3); GFR - MDRD 80.0 (>89)
--- NOTE | 2025-04-02 07:39 | PROVIDER PROGRESS NOTE ---
Subjective Prog Note Date Prog Note Date: 04/02/25 Prog Note Time: 07:37 Subjective Subjective: Rates have been higher overnight. Got pushes of Lopressor overnight. Will get dig this AM. He has not been on his diltiazem drip for several days. He has been intermittently going into RVR. He is asymptomatic during these events. He in fact denies any chest pain, dyspnea, palpitations. No lightheadedness or presyncopal symptoms. His blood pressures remained robust. Current Medications Current Medications Current Medications: Current Medications Generic Name Dose Route Start Last Admin Trade Name Freq PRN Reason Stop Dose Admin Digoxin 125 mcg 04/02/25 09:00 Digoxin 125 Mcg Tablet PO DAILY VALERIE Heparin Sodium (Porcine) 5,000 unit 03/28/25 21:00 04/01/25 21:00 Heparin 5,000 Unit/Ml Vial SUBQ Not Given BID VALERIE Diltiazem HCl 125 mg/ Dextrose 125 mls @ 5 mls/hr 04/01/25 01:00 04/01/25 08:52 IV 0 mg/hr .Q25H VALERIE 0 mls/hr Protocol Titration 5 MG/HR Metoprolol Succinate 50 mg 03/31/25 21:00 04/01/25 20:34 Metoprolol Succinate 50 Mg Tablet PO 50 mg BID VALERIE Administration Metoprolol Tartrate 5 mg 03/31/25 10:39 04/02/25 03:20 Metoprolol 5 Mg/5 Ml Vial IVP 5 mg Q6HR PRN Administration HR OVER 110 Multivitamins/Minerals 1 tab 03/29/25 17:00 04/01/25 08:51 Multivitamin W/Minerals Tablet PO 1 tab DAILYWM VALERIE Administration Ondansetron HCl 4 mg 03/28/25 17:55 Ondansetron Odt 4 Mg Tablet TL Q6HR PRN Nausea / Vomiting Ondansetron HCl 4 mg 03/28/25 17:55 Ondansetron 4 Mg/2 Ml Vial IVP Q6HR PRN Nausea / Vomiting Polyethylene Glycol 17 gm 03/29/25 09:00 04/01/25 08:51 Polyethylene Glycol 3350 17 Gm Packet PO 17 gm DAILY VALERIE Administration Sodium Chloride 10 ml 03/28/25 17:55 Sodium Chloride Flush 0.9% 10 Ml Syringe IVP PRN PRN NEEDED PER PROVIDER ORDERS Sodium Chloride 10 ml 03/29/25 01:00 04/02/25 00:32 Sodium Chloride Flush 0.9% 10 Ml Syringe IVP 10 ml 0100,0900,1700 [facility] Administration Objective Vital Signs/Intake & Output Reviewed Vital Signs: Yes Vital Signs: Vital Signs x48h Pulse Pulse Resp BP BP Pulse Ox O2 Flow Rate 04/02/25 06:12 83 22 138/86 H 95 2 04/02/25 04:00 78 23 161/99 H 95 4 04/02/25 03:46 96 153/91 H 04/02/25 03:30 132 H 04/02/25 03:20 132 H 137/82 H 04/02/25 01:42 77 12 137/82 H 96 4 04/02/25 00:48 100 135/85 H 04/02/25 00:31 120 H 135/106 H Intake & Output: Intake & Output 03/30/25 03/31/25 04/01/25 04/02/25 23:59 23:59 23:59 23:59 Intake Total 2418 / 2418 2403 / 2403 2634 / 2634 Output Total 1050 / 1050 1250 / 1250 5375 / 5375 1450 / 1450 Balance 1368 / 1368 1153 / 1153 -2741 / -2741 -1450 / -1450 Objective Comments/Other: GEN: No acute distress, frail-appearing. Cachectic. HEENT: NC/AT, normal appearance of external ears and nose. Hearing baseline and intact. Cardiac: Intermittently rapid but irregular rhythm. No murmurs appreciated. No gallops. Pulm: Lungs CTA bilaterally, no cough, no wheezes. Normal effort on room air. Abdomen: Soft, nontender, nondistended. No rebound or guarding Extremities: Moves all 4 extremities equally. Decreased muscle tone throughout. Neuro: Face symmetric, CN II through XII intact grossly. No focal neurologic deficits. Psych: Mood euthymic. Normal affect. Judgment intact. Lab Results 03/31/25 06:26 04/02/25 04:36 Other Labs: Lab Results x24hrs 04/02/25 04/02/25 04/01/25 Range/Units 04:36 00:22 11:53 VBG pH 7.504 H (7.31-7.41) Ionized Calcium 1.19 (1.09-1.30) mmol/L Sodium 136 137 (135-145) mmol/L Potassium 3.9 3.8 3.6 (3.5-4.5) mmol/L Chloride 98 L 96 L (101-111) mmol/L Carbon Dioxide 31 34 H (21-32) mmol/L Anion Gap 7.0 7.0 (6-13) BUN 12 12 (6-20) mg/dL Creatinine 0.9 0.9 (0.6-1.3) mg/dL Estimated GFR (MDRD) 80 L 80 L (>89) Glucose 108 H 102 (74-104) mg/dL Calcium 9.1 9.1 (8.5-10.3) mg/dL Phosphorus 2.8 (2.5-5.0) mg/dL Magnesium 1.9 1.9 1.9 (1.7-2.3) mg/dL Total Bilirubin 1.2 H (0.2-1.0) mg/dL AST 21 (10-42) IU/L ALT 11 (10-60) IU/L Alkaline Phosphatase 47 (42-121) IU/L B-Natriuretic Peptide 1921 H (5-100) pg/mL Total Protein 6.2 L (6.4-8.9) g/dL Albumin 3.3 (3.2-5.5) g/dL Globulin 2.9 (2.1-4.2) g/dL Albumin/Globulin Ratio 1.1 (1.0-2.2) 04/01/25 Range/Units 07:58 VBG pH (7.31-7.41) Ionized Calcium (1.09-1.30) mmol/L Sodium 135 (135-145) mmol/L Potassium 3.6 (3.5-4.5) mmol/L Chloride 99 L (101-111) mmol/L Carbon Dioxide 28 (21-32) mmol/L Anion Gap 8.0 (6-13) BUN 13 (6-20) mg/dL Creatinine 0.7 (0.6-1.3) mg/dL Estimated GFR (MDRD) 107 (>89) Glucose 114 H (74-104) mg/dL Calcium 8.8 (8.5-10.3) mg/dL Phosphorus (2.5-5.0) mg/dL Magnesium 1.9 (1.7-2.3) mg/dL Total Bilirubin (0.2-1.0) mg/dL AST (10-42) IU/L ALT (10-60) IU/L Alkaline Phosphatase (42-121) IU/L B-Natriuretic Peptide 2135 H (5-100) pg/mL Total Protein (6.4-8.9) g/dL Albumin (3.2-5.5) g/dL Globulin (2.1-4.2) g/dL Albumin/Globulin Ratio (1.0-2.2) Assessment/Plan Problem List (1) HFrEF (heart failure with reduced ejection fraction): (2) Atrial flutter with rapid ventricular response: Impression: Stable, Not yet rate controlled Continue to have rapid rates requiring multiple Lopressor pushes overnight. He is being treated right now with digoxin, s/p loading dose, and 50 mg Toprol XL twice daily Possibly new diagnosis for this patient. Found to be in atrial flutter with RVR on admission. He received adenosine, diltiazem pushes and was started on a diltiazem drip. He had heart failure exacerbation on Cardizem. He was also started on a beta-loan at that time. Cardizem has been discontinued now since 04/01. Echo completed during this hospitalization with mild global hypokinesis and EF of 43%. Normal RV size and function. Mild to moderate mitral regurgitation. He has a dilated ascending or aorta. Left atrium moderately to severely dilated. Right atrium moderately dilated. Patient has been offered previously transfer to higher level of care for cardiology support, [place] declined[place] declines any invasive procedures. Declines anticoagulation. - Will transition to Lopressor oral 50 mg every 6 hours scheduled with holding parameters - Discontinue IV Lopressor - Discontinue oral Toprol-XL for now - Consolidate Lopressor Into twice daily Toprol XL if he remains rate controlled overnight - Continue digoxin 125 mcg daily - BMP in a.m. - As above, patient has declined anticoagulation - Likely med ready 04/03 (3) Protein calorie malnutrition: Impression: Stable. Patient has a BMI of 17.8 which is generally stable from his prior weights. He has evidence of muscle wasting. Poor nutrition evidenced throughout this visit. He is not finishing most of his meals. - Appreciate nutrition following - Encouraging oral nutrition, high-protein diet - Tube feeds do not seem to be within his goals of care (4) Generalized weakness: Impression: Stable Patient presented after ground-level fall at home. Likely exacerbated by his A- fib with RVR. He was able to work with PT on 03/29 who recommending SNF at that time. CT from his initial evaluation without evidence of acute abnormality Was able to rework with PT on 04/02. Appreciate their recommendations - Likely discharge to SNF versus home with home health. - Likely med ready 04/03 (5) Dehydration: Impression: Appears euvolemic. Fluids been stopped. I spent a total of 58 minutes in the care of this patient today. This time was spent reviewing labs, vital signs, imaging, interviewing and examining the patient, and discussing plan of care with them and their other care providers
[2025-04-02] MEDS: DIGOXIN 125 MCG TABLET PO SCH (08:10)
[2025-04-02] MEDS: METOPROLOL TARTRATE 50 MG TABLET PO SCH (09:14)
[2025-04-02] MEDS: SODIUM CHLORIDE FLUSH 0.9% 10 ML SYRINGE IVP PRN (20:47)
[2025-04-03 05:31] LABS: HCT - HEMATOCRIT 38.8 % (42.0-52.0); HGB - HEMOGLOBIN 12.6 g/dL (14.0-18.0); MEAN PLATELET VOLUME 11.9 fL (7.4-11.4); NRBC ABSOLUTE COUNT (AUTO) 0.00 x10^3/uL; NUCLEATED RED BLOOD CELLS AUTO 0.0 /100WBC; PLT - PLATELET COUNT 229 10^3/uL (130-450); RED CELL DISTRIBUTION WIDTH 14.3 % (12.0-15.0)
[2025-04-03 05:45] LABS: BUN - BLOOD UREA NITROGEN 26.0 mg/dL (6-20); CARBON DIOXIDE - CO2 31.0 mmol/L (21-32); CREATININE 1.0 mg/dL (0.6-1.3); GFR - MDRD 71.0 (>89)
[2025-04-03] MEDS: METOPROLOL SUCCINATE 50 MG TABLET PO SCH (08:22)
--- NOTE | 2025-04-03 17:10 | PROVIDER PROGRESS NOTE ---
Subjective Prog Note Date Prog Note Date: 04/03/25 Prog Note Time: 17:08 Subjective Subjective: No acute events overnight. Patient feels well. He continues to have a stable pain in his shoulders. He is asking for daycare assistant. Patient's rates look really great this morning actually. He is in the 70s for the most part. Transition to metoprolol succinate today. Denies any chest pain or palpitations. Has remained afebrile. The remainder of his vital signs remained stable. PT evaluated yesterday and they are recommending discharge to SNF. Patient is amenable to going to a SNF. Current Medications Current Medications Current Medications: Current Medications Generic Name Dose Route Start Last Admin Trade Name Freq PRN Reason Stop Dose Admin Diclofenac Sodium 2 gm 04/02/25 08:52 Diclofenac Sodium 1% Gel 50 Gm Tube TOP QID PRN Mild Pain (Level 1-3) Digoxin 125 mcg 04/02/25 09:00 04/03/25 08:26 Digoxin 125 Mcg Tablet PO 125 mcg DAILY VALERIE Administration Heparin Sodium (Porcine) 5,000 unit 03/28/25 21:00 04/03/25 08:59 Heparin 5,000 Unit/Ml Vial SUBQ 5,000 unit BID VALERIE Administration Lidocaine 1 patch 04/02/25 09:00 04/03/25 08:40 Lidocaine Patch 4% TOP 1 patch DAILY VALERIE Administration Metoprolol Succinate 100 mg 04/03/25 09:00 04/03/25 08:22 Metoprolol Succinate 50 Mg Tablet PO 100 mg BID VALERIE Administration Multivitamins/Minerals 1 tab 03/29/25 17:00 04/03/25 08:26 Multivitamin W/Minerals Tablet PO 1 tab DAILYWM VALERIE Administration Ondansetron HCl 4 mg 03/28/25 17:55 Ondansetron Odt 4 Mg Tablet TL Q6HR PRN Nausea / Vomiting Ondansetron HCl 4 mg 03/28/25 17:55 Ondansetron 4 Mg/2 Ml Vial IVP Q6HR PRN Nausea / Vomiting Polyethylene Glycol 17 gm 03/29/25 09:00 04/03/25 08:24 Polyethylene Glycol 3350 17 Gm Packet PO 17 gm DAILY VALERIE Administration Sodium Chloride 10 ml 03/28/25 17:55 04/02/25 20:47 Sodium Chloride Flush 0.9% 10 Ml Syringe IVP 10 ml PRN PRN Administration NEEDED PER PROVIDER ORDERS Sodium Chloride 10 ml 03/29/25 01:00 04/03/25 08:21 Sodium Chloride Flush 0.9% 10 Ml Syringe IVP 10 ml 0100,0900,1700 VALERIE Administration Objective Vital Signs/Intake & Output Reviewed Vital Signs: Yes Vital Signs: Vital Signs x48h Temp Pulse Resp BP Pulse Ox 04/03/25 14:00 36.4 C L 74 25 H 131/91 H 95 04/03/25 10:00 70 15 94 Intake & Output: Intake & Output 03/31/25 04/01/25 04/02/25 04/03/25 23:59 23:59 23:59 23:59 Intake Total 2403 / 2403 2634 / 2634 120 / 120 530 / 530 Output Total 1250 / 1250 5375 / 5375 1725 / 1725 200 / 200 Balance 1153 / 1153 -2741 / -2741 -1605 / -1605 330 / 330 Objective Comments/Other: GEN: No acute distress, frail-appearing. Cachectic. HEENT: NC/AT, normal appearance of external ears and nose. Hearing baseline and intact. Cardiac: Irregular irregular rhythm, rate controlled. No murmurs appreciated. No gallops. Pulm: Lungs CTA bilaterally, no cough, no wheezes. Normal effort on room air. Abdomen: Soft, nontender, nondistended. No rebound or guarding Extremities: Moves all 4 extremities equally. Decreased muscle tone throughout. Neuro: Face symmetric, CN II through XII intact grossly. No focal neurologic deficits. Psych: Mood euthymic. Normal affect. Judgment intact. Lab Results 04/03/25 04:40 04/03/25 04:40 Other Labs: Lab Results x24hrs 04/03/25 Range/Units 04:40 WBC 8.3 (4.8-10.8) x10^3/uL RBC 4.25 L (4.70-6.10) 10^6/uL Hgb 12.6 L (14.0-18.0) g/dL Hct 38.8 L (42.0-52.0) % MCV 91.3 (80.0-94.0) fL MCH 29.6 (27.0-31.0) pg MCHC 32.5 (32.0-36.0) g/dL RDW 14.3 (12.0-15.0) % Plt Count 229 (130-450) 10^3/uL MPV 11.9 H (7.4-11.4) fL Neut # (Auto) 5.7 (1.5-6.6) 10^3/uL Lymph # (Auto) 0.9 L (1.5-3.5) 10^3/uL [place] # (Auto) 1.0 (0.0-1.0) 10^3/uL Eos # (Auto) 0.5 (0.0-0.7) 10^3/uL Baso # (Auto) 0.1 (0.0-0.1) 10^3/uL Absolute Nucleated RBC 0.00 x10^3/uL Nucleated RBC % 0.0 /100WBC Sodium 136 (135-145) mmol/L Potassium 3.6 (3.5-4.5) mmol/L Chloride 99 L (101-111) mmol/L Carbon Dioxide 31 (21-32) mmol/L Anion Gap 6.0 (6-13) BUN 26 H (6-20) mg/dL Creatinine 1.0 (0.6-1.3) mg/dL Estimated GFR (MDRD) 71 L (>89) Glucose 179 H (74-104) mg/dL Calcium 8.6 (8.5-10.3) mg/dL Magnesium 2.0 (1.7-2.3) mg/dL Assessment/Plan Problem List (1) HFrEF (heart failure with reduced ejection fraction): (2) Atrial flutter with rapid ventricular response: Impression: Stable. Rate controlled. Not volume overloaded. Possibly new diagnosis for this patient. Found to be in atrial flutter with RVR on admission. He received adenosine, diltiazem pushes and was started on a diltiazem drip. He had heart failure exacerbation on Cardizem. He was also started on a beta-loan at that time. Cardizem has been discontinued now since 04/01. Is rate stabilized on digoxin 125 mcg as well as metoprolol with a total dose of 200 mg daily. He has been transitioned to Toprol-XL 100 mg twice daily Echo completed during this hospitalization with mild global hypokinesis and EF of 43%. Normal RV size and function. Mild to moderate mitral regurgitation. He has a dilated ascending or aorta. Left atrium moderately to severely dilated. Right atrium moderately dilated. Patient has been offered previously transfer to higher level of care for cardiology support, [place] declined[place] declines any invasive procedures. Declines anticoagulation. - Consolidate Lopressor to Toprol XL 100 mg twice daily - Continue digoxin 125 mcg daily o Will check dig level in the morning - BMP in a.m. - As above, patient has declined anticoagulation - Med ready for discharge to SNF, appreciate case management (3) Protein calorie malnutrition: Impression: Stable. Patient has a BMI of 17.8 which is generally stable from his prior weights. He has evidence of muscle wasting. Poor nutrition evidenced throughout this visit. He is not finishing most of his meals. - Appreciate nutrition following - Encouraging oral nutrition, high-protein diet - Tube feeds do not seem to be within his goals of care (4) Generalized weakness: Impression: Stable Patient presented after ground-level fall at home. Likely exacerbated by his A- fib with RVR. He worked with PT on 03/29 as well as 04/02. They are recommending SNF. CT from his initial evaluation without evidence of acute abnormality - Likely discharge to SNF, med ready 04/03 (5) Dehydration: Impression: Appears euvolemic. Fluids have been stopped as of 04/02 I spent a total of 37 minutes in the care of this patient today. This time was spent reviewing labs, vital signs, imaging, interviewing and examining the patient, and discussing plan of care with them and their other care providers. Patient has 1 or more chronic conditions with exacerbation that is improving. Prescription drug management as above. [id number]
[2025-04-04 05:18] LABS: HCT - HEMATOCRIT 38.3 % (42.0-52.0); HGB - HEMOGLOBIN 12.3 g/dL (14.0-18.0); MEAN PLATELET VOLUME 11.2 fL (7.4-11.4); NRBC ABSOLUTE COUNT (AUTO) 0.00 x10^3/uL; NUCLEATED RED BLOOD CELLS AUTO 0.0 /100WBC; PLT - PLATELET COUNT 218 10^3/uL (130-450); RED CELL DISTRIBUTION WIDTH 14.3 % (12.0-15.0)
[2025-04-04 05:58] LABS: BUN - BLOOD UREA NITROGEN 23.0 mg/dL (6-20); CARBON DIOXIDE - CO2 33.0 mmol/L (21-32); CREATININE 0.9 mg/dL (0.6-1.3); GFR - MDRD 80.0 (>89)
--- NOTE | 2025-04-04 07:33 | PROVIDER PROGRESS NOTE ---
Subjective Prog Note Date Prog Note Date: 04/04/25 Prog Note Time: 07:31 Subjective Subjective: No acute events overnight. Rates remain well-controlled. Vital signs remained stable. Satting 96% on room air. Patient remains medically ready for discharge. He was recommended for SNF yesterday. This was discussed at case management rounds. I do not see an updated case management note from yesterday. Discussed with patient this 40. He is eating breakfast. He is picking at his eggs. Does not have any acute concerns. Denies any chest pain, dyspnea, palpitations, abdominal pain, nausea, vomiting, or diarrhea. Current Medications Current Medications Current Medications: Current Medications Generic Name Dose Route Start Last Admin Trade Name Freq PRN Reason Stop Dose Admin Diclofenac Sodium 2 gm 04/02/25 08:52 Diclofenac Sodium 1% Gel 50 Gm Tube TOP QID PRN Mild Pain (Level 1-3) Digoxin 125 mcg 04/02/25 09:00 04/03/25 08:26 Digoxin 125 Mcg Tablet PO 125 mcg DAILY VALERIE Administration Heparin Sodium (Porcine) 5,000 unit 03/28/25 21:00 04/03/25 20:54 Heparin 5,000 Unit/Ml Vial SUBQ 5,000 unit BID VALERIE Administration Lidocaine 1 patch 04/02/25 09:00 04/03/25 08:40 Lidocaine Patch 4% TOP 1 patch DAILY VALERIE Administration Metoprolol Succinate 100 mg 04/03/25 09:00 04/03/25 20:52 Metoprolol Succinate 50 Mg Tablet PO 100 mg BID VALERIE Administration Multivitamins/Minerals 1 tab 03/29/25 17:00 04/03/25 08:26 Multivitamin W/Minerals Tablet PO 1 tab DAILYWM VALERIE Administration Ondansetron HCl 4 mg 03/28/25 17:55 Ondansetron Odt 4 Mg Tablet TL Q6HR PRN Nausea / Vomiting Ondansetron HCl 4 mg 03/28/25 17:55 Ondansetron 4 Mg/2 Ml Vial IVP Q6HR PRN Nausea / Vomiting Polyethylene Glycol 17 gm 03/29/25 09:00 04/03/25 08:24 Polyethylene Glycol 3350 17 Gm Packet PO 17 gm DAILY VALERIE Administration Sodium Chloride 10 ml 03/28/25 17:55 04/03/25 20:55 Sodium Chloride Flush 0.9% 10 Ml Syringe IVP 10 ml PRN PRN Administration NEEDED PER PROVIDER ORDERS Sodium Chloride 10 ml 03/29/25 01:00 04/04/25 01:01 Sodium Chloride Flush 0.9% 10 Ml Syringe IVP Not Given 0100,0900,1700 [facility] Objective Vital Signs/Intake & Output Reviewed Vital Signs: Yes Vital Signs: Vital Signs x48h Temp Pulse Resp BP Pulse Ox 04/04/25 04:55 36.6 C 79 15 137/87 H 96 Intake & Output: Intake & Output 04/01/25 04/02/25 04/03/25 04/04/25 23:59 23:59 23:59 23:59 Intake Total 2634 / 2634 120 / 120 830 / 830 Output Total 5375 / 5375 1725 / 1725 300 / 300 Balance -2741 / -2741 -1605 / -1605 530 / 530 Objective Comments/Other: GEN: No acute distress, frail-appearing. Cachectic. HEENT: NC/AT, normal appearance of external ears and nose. Hearing baseline and intact. Cardiac: Irregular irregular rhythm, rate controlled. No murmurs appreciated. No gallops. Pulm: Lungs CTA bilaterally, no cough, no wheezes. Normal effort on room air. Abdomen: Soft, nontender, nondistended. No rebound or guarding Extremities: Moves all 4 extremities equally. Decreased muscle tone throughout. Neuro: Face symmetric, CN II through XII intact grossly. No focal neurologic deficits. Psych: Mood euthymic. Normal affect. Judgment intact. Lab Results 04/04/25 05:02 04/04/25 05:02 Other Labs: Lab Results x24hrs 04/04/25 Range/Units 05:02 WBC 8.9 (4.8-10.8) x10^3/uL RBC 4.17 L (4.70-6.10) 10^6/uL Hgb 12.3 L (14.0-18.0) g/dL Hct 38.3 L (42.0-52.0) % MCV 91.8 (80.0-94.0) fL MCH 29.5 (27.0-31.0) pg MCHC 32.1 (32.0-36.0) g/dL RDW 14.3 (12.0-15.0) % Plt Count 218 (130-450) 10^3/uL MPV 11.2 (7.4-11.4) fL Neut # (Auto) 6.1 (1.5-6.6) 10^3/uL Lymph # (Auto) 0.9 L (1.5-3.5) 10^3/uL [place] # (Auto) 1.2 H (0.0-1.0) 10^3/uL Eos # (Auto) 0.5 (0.0-0.7) 10^3/uL Baso # (Auto) 0.1 (0.0-0.1) 10^3/uL Absolute Nucleated RBC 0.00 x10^3/uL Nucleated RBC % 0.0 /100WBC Sodium 135 (135-145) mmol/L Potassium 3.8 (3.5-4.5) mmol/L Chloride 98 L (101-111) mmol/L Carbon Dioxide 33 H (21-32) mmol/L Anion Gap 4.0 L (6-13) BUN 23 H (6-20) mg/dL Creatinine 0.9 (0.6-1.3) mg/dL Estimated GFR (MDRD) 80 L (>89) Glucose 106 H (74-104) mg/dL Calcium 8.4 L (8.5-10.3) mg/dL Magnesium 1.9 (1.7-2.3) mg/dL ABX Reporting Has patient been on IV antibiotics over the past 48 hours?: No Assessment/Plan Problem List (1) HFrEF (heart failure with reduced ejection fraction): (2) Atrial flutter with rapid ventricular response: Impression: Continues to be rate controlled. Euvolemic. Medically stable from yesterday. Most of this note is copied forward With relevant corrections and updates. Digoxin level intended to be collected 04/04 was inadvertently ordered for 03/06 Recall that atrial flutter is new diagnosis for this patient. Found to be in atrial flutter with RVR on admission. He received adenosine, diltiazem pushes and was started on a diltiazem drip. He had heart failure exacerbation on Cardizem requiring diuresis. He was also started on a beta-loan at that time. Cardizem has been discontinued now since 04/01. Is rate stabilized on digoxin 125 mcg as well as metoprolol with a total dose of 200 mg daily. He has been transitioned to Toprol-XL 100 mg twice daily Echo completed during this hospitalization with mild global hypokinesis and EF of 43%. Normal RV size and function. Mild to moderate mitral regurgitation. He has a dilated ascending or aorta. Left atrium moderately to severely dilated. Right atrium moderately dilated. Patient has been offered previously transfer to higher level of care for cardiology support, has declined[place] declines any invasive procedures. Declines anticoagulation. - Continue Toprol XL 100 mg twice daily - Continue digoxin 125 mcg daily o Dig level in the morning. - BMP in a.m. - As above, patient has declined anticoagulation - Med ready for discharge to SNF, appreciate case management, he was choiced today (3) Protein calorie malnutrition: Impression: Stable. Patient has a BMI of 17.8 which is generally stable from his prior weights. He has evidence of muscle wasting. Poor nutrition evidenced throughout this visit. He is not finishing most of his meals. - Appreciate nutrition following - Encouraging oral nutrition, high-protein diet - Tube feeds do not seem to be within his goals of care (4) Generalized weakness: Impression: Stable Patient presented after ground-level fall at home. Likely exacerbated by his A- fib with RVR. He worked with PT on 03/29 as well as 04/02. They are recommending SNF. CT from his initial evaluation without evidence of acute abnormality - Likely discharge to SNF, med ready 04/03 (5) Dehydration: Impression: Appears euvolemic. Fluids have been stopped as of 04/02 I spent a total of 21 minutes in the care of this patient today. This time was spent reviewing labs, vital signs, imaging, interviewing and examining the patient, and discussing plan of care with them and their other care providers. Patient has 1 or more chronic conditions with exacerbation that is improving. Prescription drug management as above. [id number]
[2025-04-05 06:23] LABS: HCT - HEMATOCRIT 41.2 % (42.0-52.0); HGB - HEMOGLOBIN 13.2 g/dL (14.0-18.0); MEAN PLATELET VOLUME 11.3 fL (7.4-11.4); NRBC ABSOLUTE COUNT (AUTO) 0.00 x10^3/uL; NUCLEATED RED BLOOD CELLS AUTO 0.0 /100WBC; PLT - PLATELET COUNT 231 10^3/uL (130-450); RED CELL DISTRIBUTION WIDTH 14.4 % (12.0-15.0)
[2025-04-05 06:55] LABS: BUN - BLOOD UREA NITROGEN 20.0 mg/dL (6-20); CARBON DIOXIDE - CO2 28.0 mmol/L (21-32); CREATININE 0.8 mg/dL (0.6-1.3); GFR - MDRD 92.0 (>89)
--- NOTE | 2025-04-05 07:49 | PROVIDER PROGRESS NOTE ---
Subjective Prog Note Date Prog Note Date: 04/05/25 Prog Note Time: 07:48 Subjective Subjective: No acute events overnight. Heart rate remains stable in 60s 70s. Digoxin level came back at 1.1. Within range. Therapeutic. Patient has been sleeping through most of his days for the last couple of days. He does not eat much for meals. He does not get out of bed. He has a sacral ulcer that is improving, stage I. POA Discussed with patient. See separate ACP note from today. Otherwise he is denying any fever/chills, chest pain, dyspnea. He says his legs hurt, but cannot otherwise elaborate. He feels tired. Feels like eating is effortful. Current Medications Current Medications Current Medications: Current Medications Generic Name Dose Route Start Last Admin Trade Name Freq PRN Reason Stop Dose Admin Diclofenac Sodium 2 gm 04/02/25 08:52 Diclofenac Sodium 1% Gel 50 Gm Tube TOP QID PRN Mild Pain (Level 1-3) Digoxin 125 mcg 04/02/25 09:00 04/04/25 08:49 Digoxin 125 Mcg Tablet PO 125 mcg DAILY VALERIE Administration Heparin Sodium (Porcine) 5,000 unit 03/28/25 21:00 04/04/25 20:42 Heparin 5,000 Unit/Ml Vial SUBQ 5,000 unit BID VALERIE Administration Lidocaine 1 patch 04/02/25 09:00 04/04/25 08:54 Lidocaine Patch 4% TOP Not Given DAILY VALERIE Metoprolol Succinate 100 mg 04/03/25 09:00 04/04/25 20:43 Metoprolol Succinate 50 Mg Tablet PO 100 mg BID VALERIE Administration Multivitamins/Minerals 1 tab 03/29/25 17:00 04/04/25 08:49 Multivitamin W/Minerals Tablet PO 1 tab DAILYWM VALERIE Administration Ondansetron HCl 4 mg 03/28/25 17:55 Ondansetron Odt 4 Mg Tablet TL Q6HR PRN Nausea / Vomiting Ondansetron HCl 4 mg 03/28/25 17:55 Ondansetron 4 Mg/2 Ml Vial IVP Q6HR PRN Nausea / Vomiting Polyethylene Glycol 17 gm 03/29/25 09:00 04/04/25 08:50 Polyethylene Glycol 3350 17 Gm Packet PO 17 gm DAILY VALERIE Administration Sodium Chloride 10 ml 03/28/25 17:55 04/03/25 20:55 Sodium Chloride Flush 0.9% 10 Ml Syringe IVP 10 ml PRN PRN Administration NEEDED PER PROVIDER ORDERS Sodium Chloride 10 ml 03/29/25 01:00 04/05/25 00:09 Sodium Chloride Flush 0.9% 10 Ml Syringe IVP 10 ml 0100,0900,1700 VALERIE Administration Objective Vital Signs/Intake & Output Reviewed Vital Signs: Yes Vital Signs: Vital Signs x48h Temp Pulse Resp BP Pulse Ox 04/05/25 00:00 36.9 C 64 18 138/86 H 97 Intake & Output: Intake & Output 04/02/25 04/03/25 04/04/25 04/05/25 23:59 23:59 23:59 23:59 Intake Total 120 / 120 830 / 830 460 / 460 Output Total 1725 / 1725 300 / 300 400 / 400 775 / 775 Balance -1605 / -1605 530 / 530 60 / 60 -775 / -775 Objective Comments/Other: GEN: No acute distress, frail-appearing. Cachectic. HEENT: NC/AT, normal appearance of external ears and nose. Hearing baseline and intact. Cardiac: Irregular irregular rhythm, rate controlled. No murmurs appreciated. No gallops. Pulm: Lungs CTA bilaterally, no cough, no wheezes. Normal effort on room air. Abdomen: Soft, nontender, nondistended. No rebound or guarding Back: pink 8 to 10 cm blanchable area along the sacrum. Stage I sacral ulcer, improving Extremities: Moves all 4 extremities equally. Decreased muscle tone throughout. Neuro: Face symmetric, CN II through XII intact grossly. No focal neurologic deficits. Psych: Mood euthymic. Flattened affect. Judgment intact. Lab Results 04/05/25 05:53 04/05/25 05:53 Other Labs: Lab Results x24hrs 04/05/25 Range/Units 05:53 WBC 10.1 (4.8-10.8) x10^3/uL RBC 4.51 L (4.70-6.10) 10^6/uL Hgb 13.2 L (14.0-18.0) g/dL Hct 41.2 L (42.0-52.0) % MCV 91.4 (80.0-94.0) fL MCH 29.3 (27.0-31.0) pg MCHC 32.0 (32.0-36.0) g/dL RDW 14.4 (12.0-15.0) % Plt Count 231 (130-450) 10^3/uL MPV 11.3 (7.4-11.4) fL Neut # (Auto) 6.3 (1.5-6.6) 10^3/uL Lymph # (Auto) 1.8 (1.5-3.5) 10^3/uL [place] # (Auto) 1.3 H (0.0-1.0) 10^3/uL Eos # (Auto) 0.5 (0.0-0.7) 10^3/uL Baso # (Auto) 0.1 (0.0-0.1) 10^3/uL Absolute Nucleated RBC 0.00 x10^3/uL Nucleated RBC % 0.0 /100WBC Sodium 135 (135-145) mmol/L Potassium 4.3 (3.5-4.5) mmol/L Chloride 99 L (101-111) mmol/L Carbon Dioxide 28 (21-32) mmol/L Anion Gap 8.0 (6-13) BUN 20 (6-20) mg/dL Creatinine 0.8 (0.6-1.3) mg/dL Estimated GFR (MDRD) 92 (>89) Glucose 115 H (74-104) mg/dL Calcium 9.1 (8.5-10.3) mg/dL Magnesium 2.2 (1.7-2.3) mg/dL Last Dose Date UNK Last Dose Time UNK Digoxin 1.1 ng/mL ABX Reporting Has patient been on IV antibiotics over the past 48 hours?: No Assessment/Plan Problem List (1) HFrEF (heart failure with reduced ejection fraction): (2) Atrial flutter with rapid ventricular response: Impression: Most of this note is copied from days prior. Rates remain controlled. Continues to be medically stable for discharge. Digoxin level is therapeutic. Recall that atrial flutter is new diagnosis for this patient. Found to be in atrial flutter with RVR on admission. He received adenosine, diltiazem pushes and was started on a diltiazem drip. He had heart failure exacerbation on Cardizem requiring diuresis. He was also started on a beta-loan at that time. Cardizem has been discontinued now since 04/01. Is rate stabilized on digoxin 125 mcg as well as metoprolol with a total dose of 200 mg daily. He has been transitioned to Toprol-XL 100 mg twice daily Echo completed during this hospitalization with mild global hypokinesis and EF of 43%. Normal RV size and function. Mild to moderate mitral regurgitation. He has a dilated ascending or aorta. Left atrium moderately to severely dilated. Right atrium moderately dilated. Patient has been offered previously transfer to higher level of care for cardiology support, has declined. [place] He declines any invasive procedures. Declines anticoagulation. Digoxin trough obtained 04/05: 1.1 - Continue Toprol XL 100 mg twice daily - Continue digoxin 125 mcg daily - No longer trending BMP - As above, patient has declined anticoagulation - Med ready for discharge to SNF, appreciate case management, Awaiting authorization at [facility], today is an avoidable day (3) Protein calorie malnutrition: Impression: Stable. Patient has a BMI of 17.8 which is generally stable from his prior weights. He has evidence of muscle wasting. Poor nutrition evidenced throughout this visit. He is not finishing most of his meals. - Appreciate nutrition following - Encouraging oral nutrition, high-protein diet - Tube feeds do not seem to be within his goals of care - Continue to consider hospice to be appropriate measure for this person if he so chooses (4) Generalized weakness: Impression: Stable Patient presented after ground-level fall at home. Likely exacerbated by his A- fib with RVR. He worked with PT on 03/29 as well as 04/02. They are recommending SNF. CT from his initial evaluation without evidence of acute abnormality - Likely discharge to SNF, med ready 04/03 (5) Sacral ulcer: Impression: Stage I sacral pressure ulcer, present on arrival. Reviewed photos from admission, it is improving. - Continue offloading as able - Mobilize as able - Continue at least QW monitoring (6) Dehydration: Impression: Appears euvolemic. Fluids have been stopped as of 04/02 I spent a total of 27 minutes in the care of this patient today, not including ACP time billed seperately. This time was spent reviewing labs, vital signs, imaging, interviewing and examining the patient, and discussing plan of care with them and their other care providers. Patient has 1 or more chronic conditions with exacerbation that is improving. Prescription drug management as above. [id number]
--- NOTE | 2025-04-05 14:04 | ADVANCE CARE PLANNING NOTE ---
Advance Care Planning Planning Encounter Date: 04/05/25 Time: 14:02 Purpose: Prolonged hospitalization, functional decline Parties in Attendance: Patient, Hospitalist Decisional Capacity of the Patient: Patient decisional, alert and oriented Diagnosis for Encounter (1) HFrEF (heart failure with reduced ejection fraction): (2) Atrial flutter with rapid ventricular response: (3) Protein calorie malnutrition: (4) Generalized weakness: (5) Dehydration: Encounter Subjective/Patient's Story: On interview is somewhat limited by the patient being cryptic in his responses. He is tired. He is very fatigued from eating half of his meal. The patient has a visiting caregiver who sees him 3-5 times a week. He has no nearby family members. His partner in 2010. He struggles to think of who would be a surrogate decision maker for him. He thinks Jen, his caregiver, is the only one who would know anything about him. The only person he would trust. Prior to his hospitalization, he was mostly independent at home. His caregiver only came a few times a week. He has been quite debilitated from his extended hospitalization. Objective/Medical Story: Patient presented with atrial fibrillation and RVR. He had an extended course. He has been here for over a week and had progressive functional decline. His heart rate is now stabilized. PT has worked with him twice now and given his debility, are recommending him for detention for further rehab before he is safe to go home. At times patient has declined to do this, but for the last few days he has been consistent and that this is what he wants to do. At the same time he has not been eating much. He finishes less than 50% of most of his meals. He is telling me today that it exhausts him to physically lift the silverware to his mouth. He thinks the food is good, but finds it to be too effortful to eat. In talking with nursing, it is taking him several hours to eat less than 50% of each meal. He slowly picks at things before going back to sleep. He sleeps for most of the days. He has refused getting up with PT sometimes. He is refuse getting out of bed to the chair with nursing support. When PT saw him on 04/02, they reported that he is requiring max assist for all transfers out of bed. He did not require any cueing. Able to scoot back in the chair. He has a chronic deformity in his spine that is painful to him. Goals of Care: I discussed with the patient at bedside whether it was most appropriate to continue pursuing further rehab or whether it made more sense for him, in the context of him not being able to eat, getting more debilitated throughout this hospitalization, and his comfort focused POLST is at bedside whether he thinks that it is time to pursue hospice. We discussed that there are 2 paths forward of (1) going to rehab and trying to get stronger to get home, or (2) going directly home with the supports of hospice and likely more caregiving support. This comfort focused approach would not be discordant with his historic behaviors. I asked the patient what was most important to him and life. 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 He shares that he feels he is running out of time to do so. He thinks it will take "a miracle" for him to be successful. He was becoming quite fatigued and distressed at this conversation, and I offered to continue it at a later time. He shares 1 more thing as I am leaving the room. He wants me to know that he "might not look it, but I am strong". I shared that his strength was evident. Plan: * Continue to support the patient's independence, at this time continue pursuing rehab * I will discuss with his caregiver and sdm, Jen, but it did not feel appropriate to call her on the holiday * Patient continues to be DNR/selective treatments * Comfort focused POLST in room * Based on his progressive deconditioning and decline, suspect hospice eligible, would not be surprised if this patient was in the next 6 months Code Status: Do Not Attempt Resuscitation Time spent on advance care plannin
[2025-04-05] MEDS: COD LIVER OIL/ZINC OXIDE 113 GM TUBE TOP PRN (14:45)
--- NOTE | 2025-04-06 13:43 | Discharge Summary ---
"Discharge Summary Admit Date: 03/28/25 Discharge Date: 04/06/25 Discharging Provider: Rodo Johnson Primary Care Provider: No PCP Code Status: Do Not Attempt Resuscitation Discharge Facility Name: [facility] DIAGNOSES Discharge Diagnoses with Status of Each Condition: ## Atrial fibrillation with RVR Now rate controlled. On digoxin and metoprolol. Patient has declined anticoagulation. ## Heart failure reduced ejection fraction Has remained euvolemic without any other interventions. Avoiding dietary restrictions given his protein calorie malnutrition as below ## Physical deconditioning Patient being recommended for discharge to SNF per PT. Discharging to [facility]. ## Protein calorie malnutrition Patient with poor nutrition throughout this hospitalization. Eating less than 50% of his meals. Tube feeds not within goals of care. Liberalize diet to promote nutrition. ## Stage I sacral ulcer Present on arrival. Improving. Continue to offload as able. ## History of kyphoscoliosis With marked deformity. Painful chronically. Ongoing PT and rehab as above HPI History of Present Illness: Patient is a 85-year-old male who states that he has no past medical history. He presents via EMS after being found down on the floor. He is a pretty poor historian in this regard, and does not remember falling or being on the floor at his house. His friends or family had not heard from him, so they called a welfare check. When asked which friend or family member I can call for further information, he is unable to provide a name, Per ER documentation, EMS found him down and brought him in. In the emergency room, he was found to be in atrial flutter with rapid ventricular responsehis heart rate was as high as 144. He was normotensive the entire time. He was afebrile, and saturating 93% on room air. Lab work was reviewedhe had a normal white count. BMP was largely unremarkable. CPK was mildly elevated at 367. UA was negative for any acute infection. Head CT was completed which shows no acute intracranial process. For his atrial flutterinitially, adenosine was given. This was followed by Cardizem. This helped slow down his rate. He was trialed with just oral medications, but eventually needed a Cardizem drip. He was then admitted to the ICU. At this time, patient denies any chest pain, fevers, chills, palpitations, weaknesses. He states that he has no past medical history. He takes no medications. The last time he saw a doctor was a naturopathic doctor about 6 years ago. He has no known drug allergies. He has had no surgeries. He denies any alcohol, tobacco, recreational drug use. He lives alone. When asked who he would want to call in case of an emergency, he is unable to list someone. His contact list someone named Jen Fuentes. Patient resuscitation status was briefly discussed, and patient is a DO NOT RESUSCITATE. CONSULTS | PROCEDURES Consultations: PT Procedures: CTH 03/28 CXR 04/01 HOSPITAL COURSE Hospital Course: Patient is an 85-year-old male with no effective past medical history. He does not go to doctors frequently. He seen a naturopathic 6 years ago, but no providers in the interim. He presented after being found down. He was found to be in atrial fibrillation with RVR. Treated initially with a Cardizem drip which was able to control his rate but precipitated with volume overload. He was then diuresed. Echocardiogram reveals that he has heart failure with reduced ejection fraction. EF 43%. He was transition to digoxin which after IV loading dose was able to control his rate somewhat. With concomitant beta-loan. Beta-loan was then increased to 100 mg metoprolol twice daily. He tolerated this well, and his rates have normalized. He continues on digoxin 125 mcg daily and metoprolol succinate 100 mg twice daily. His last digoxin level on 04/05 was 1.1 and therapeutic. Throughout this extended hospitalization, has become more deconditioned. He is normally independent at home. He has a caregiver, but she comes 3 times a week. He has not gotten out of bed much throughout this hospitalization. He continues to be fairly immobile. He has been recommended for further rehab by physical therapy. Finally it was noted that he was not eating much throughout this hospitalization. His mood seems poor. He may have some element of depression affecting this. However ultimately, he says that it is effortful and exhausting to finish his meals. He may be in the last year of his life. I have recommended him to consider hospice. He wants to continue to try and get better. The goal is to discharge him to physical therapy for a brief time so he can return home and live independently with the support he has from his caregiver. 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 Patient was seen and evaluated on day of discharge. His mood is better today than it has been in the days past. He is eager to get to rehab. He denies any chest pain, palpitations, dyspnea. He was able to eat this morning. He is discharged in stable condition to [facility]. ALLERGIES Allergies Allergy/AdvReac Type Severity Reaction Status Date / Time No Known Drug Allergies Allergy Verified 03/28/25 14:54 MEDICATIONS Ambulatory Orders Medication Instructions Recorded Confirmed digoxin 125 mcg (0.125 mg) tablet 125 mcg PO DAILY #30 tabs 04/06/25 lidocaine 4 % topical patch 1 patch topical DAILY #30 ea 04/06/25 metoprolol succinate 50 mg 100 mg (2 x 50 mg) PO BID # 120 tabs 04/06/25 tablet,extended release 24 hr polyethylene glycol 3350 17 gram 17 g PO DAILY PRN Con stipation #30 04/06/25 oral powder packet ea LABS 04/05/25 05:53 04/05/25 05:53 DIAGNOSTIC IMAGING Diagnostic Imaging Results Comments: Echo 04/06: The left ventricle is mildly dilated. Global left ventricular systolic function is mildly decreased. The calculated ejection fraction, as determined by the biplane method of disks, is 43%. There is mild global hypokinesis of the left ventricle. The right ventricle is normal in size and function. There is mild to moderate mitral regurgitation. The diameter of the ascending aorta is 4.5 cm. The ascending aorta is moderately dilated. The aorta at the level of the sinuses of Valsalva is mildly dilated. The aorta at the sinus of Valsalva measures 4.0cm. 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 No focal airspace disease or substantial pleural effusion. Head CT 03/28: 1. No acute intracranial process. 2. Moderate atrophy and chronic microvascular ischemic changes. FOLLOW UP Follow Up: Patient needs to establish primary care for follow-up and ongoing medication fills. TIME SPENT Time Spent in Discharge (Minutes): 36 Discharge Plan Discharge Patient Disposition: 03 SNF DC/Xfer Condition: Stable Medically Cleared Date:: 04/04/25 Prescriptions: New digoxin 125 mcg (0.125 mg) Tablet 125 mcg PO DAILY Qty: 30 0RF metoprolol succinate 50 mg Tablet Extended Release 24 Hr 100 mg PO BID Qty: 120 0RF lidocaine 4 % Adhesive Patch,Medicated 1 patch topical DAILY Qty: 30 0RF polyethylene glycol 3350 17 gram Powder In Packet 17 g PO DAILY PRN (Reason: Constipation) Qty: 30 0RF Activity Restrictions: Activity as Tolerated Diet: Regular Health Concerns: You are admitted for concerns for atrial fibrillation with rapid ventricular response. This is a condition which your heart rate is beating irregularly, but beating greater than 90 bpm. You were treated with medications to slow your heart rate. This was successful with 2 medications, digoxin and metoprolol. He have been continued on these medications and are tolerating them well. In addition, it was recommended that you start on anticoagulation. You do not want to be on a blood thinner. That is reasonable and your choice. Blood thinners are administered in your condition typically for stroke prevention. You are not being prescribed a blood thinner at discharge at your request. Medications: * Take your medications as prescribed. This helps keep your heart rate controlled. Do not skip doses or stop taking it without talking to your doctor. What to Watch For: * Call your doctor or seek emergency care if you experience chest pain, severe shortness of breath, fainting, or palpitations that do not go away * Report any new or worsening symptoms, such as swelling in your legs, sudden weight gain, or confusion. Activity and Lifestyle: - Resume normal activities as tolerated. Avoid strenuous exercise until cleared by your doctor. - Limit alcohol and avoid recreational drugs, as these can trigger AFib episodes.[3][4] - Stay hydrated and avoid excessive caffeine. Follow-Up: - Schedule a follow-up appointment with your primary care provider or [employer] pegger within 1-2 weeks. - You may need blood tests to monitor kidney function and other labs, as well as an echocardiogram or other heart tests.[3] - Bring a list of your medications to every appointment. Other Instructions: - Carry a list of your medications and medical conditions with you at all times. - Do not start or stop any medications, including [id number] drugs or supplements, without consulting your doctor. Please call 911 if: Severe chest pain, sudden weakness or numbness, difficulty speaking, or vision changesthese may be signs of stroke or heart attack and require immediate attention. You are found to be weak and below your baseline functional status. The physical therapist who thought that you would benefit from a short time in rehab to get stronger in order to safely get home. You are discharged to [facility] [place] for ongoing rehabilitation. Print Language: Congolese Patient Instructions: AFib Dc Stand Alone Forms: SNF Discharge Vitals documented within 30 minutes of discharge?: Yes"
[2025-04-06] MEDS: DICLOFENAC SODIUM 1% GEL 50 GM TUBE TOP PRN (14:32)
[2025-04-06 15:06] VITALS: BP 128/71; TEMP 97.7; O2SAT 99
== END 2025-04-06 15:01 | DRG 308 ==
LOC: ICU 14:02 → ED 14:02 → ICU 18:07 → SUATTDRO 03-29 11:17 → MS2 04-04 13:47
PROVIDERS: ADMIT Internal Medicine; ATTEND Student in an Organized Health Care Education/Training Program